=== PATIENT | male | born 1950 | race Caucasian/White ===

== ENCOUNTER 2021-07-13 09:34 | Outpatient (CLI) | payer OTHER, SELFPAY ==
[2021-07-13 20:22] LABS: Anion Gap 7 mmol/L (8-16); Blood Urea Nitrogen 14 mg/dL (9-20); Carbon Dioxide 23 mmol/L (22-30); Chloride 108 mmol/L (98-107); Estimated Glomerular Filt Rate 46; Glucose 161 mg/dL (65-110); Potassium 4.4 mmol/L (3.4-5.0); Sodium 138 mmol/L (137-145)
== END 2021-07-13 09:35 | disposition home or self-care (01) ==
LOC: ANHBWCLAB 09:36
PROVIDERS: PCP Family Medicine; Visit Provider Family Medicine
DX: N17.9 Acute kidney failure, unspecified (principal)
CPT/HCPCS: 36415; 80048

== ENCOUNTER 2021-07-20 09:14 | Outpatient (CLI) | payer OTHER, SELFPAY ==
--- NOTE | ~2021-07-20 | XR_ITS ---
EXAMINATION: XR abdomen obstructive series DATE: 07/20/2021 09:39 INDICATION: Diarrhea, abdominal cramping TECHNIQUE: Upright and supine views of the abdomen were obtained. COMPARISON: None. FINDINGS: There is no free intraperitoneal gas. No dilated loops of bowel are the bowel gas pattern i s nonspecific. An ovoid density in the mid abdomen likely reflects an ingested medication. 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 IMPRESSION: 1. Nonobstructive bowel gas pattern. Reviewed, dictated and finalized at location A. LSIOR MACHINE OPERATOR
--- NOTE | ~2021-07-20 | XR_ITS ---
XR chest 2V DATE: 07/20/2021 09:39 INDICATION: Chronic shortness of breath TECHNIQUE: PA and lateral views COMPARISON: None FINDINGS: Normal heart size. No hilar or mediastinal enlargement. No pulmonary infiltrate or consolid ation, pleural effusion or pulmonary vascular congestion or pneumothorax is detected. Diffuse osteopenia. There is mild thoracic dextroscoliosis. IMPRESSION: No active cardiopulmonary disease Reviewed, dictated and finalized at location B. OFFICER
[2021-07-20 19:07] LABS: Hematocrit 39.1 % (42.0-52.0); Hemoglobin 13.1 g/dL (14.0-18.0); Mean Corpuscular HGB Conc 33.5 g/dl (32-36); Mean Corpuscular Hemoglobin 30.6 pg (26-34); Mean Corpuscular Volume 91.4 fl (80-100); Mean Platelet Volume 10.5 fl (7.4-10.4); Platelet Count Result 203 k/mm3 (150-375); Red Blood Count 4.28 M/mm3 (4.6-6.20); Red Cell Distribution Width 14.1 % (11.5-14.5); White Blood Count 6.1 K/mm3 (4.5-10.0)
[2021-07-20 19:24] LABS: Anion Gap 6 mmol/L (8-16); Blood Urea Nitrogen 19 mg/dL (9-20); Calcium 9.2 mg/dL (8.4-10.2); Carbon Dioxide 28 mmol/L (22-30); Chloride 101 mmol/L (98-107); Estimated Glomerular Filt Rate 43; Glucose 191 mg/dL (65-110); Sodium 135 mmol/L (137-145)
[2021-07-20 19:29] LABS: NT Pro B Type Natriuretic Pept 932 pg/mL (5-100)
[2021-07-27 20:56] LABS: Parathyroid Hormone Related Pr 15 pg/mL (11-20)
== END 2021-07-20 09:15 | disposition home or self-care (01) ==
PROVIDERS: PCP Family Medicine; Visit Provider Family Medicine
DX: R19.7 Diarrhea, unspecified (principal); R10.9 Unspecified abdominal pain; R94.4 Abnormal results of kidney function studies; I50.9 Heart failure, unspecified
CPT/HCPCS: 36415; 71046; 74019; 80048; 83519; 83880; 85027

== ENCOUNTER 2021-08-01 12:21 | Outpatient (CLI) | payer OTHER, SELFPAY ==
--- NOTE | ~2021-08-01 | PE_ITS ---
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 TECHNIQUE: Blood glucose level was 110 mg/dL. 9.132 mCi of 18-fluorodeoxyglucose (18-FDG) was adminis tered i.v. Low dose computed tomography (CT) images were acquired from the base of the brain to the p roximal thighs for attenuation correction and anatomic localization. Automated exposure control was e mployed. Dose-length product (DLP) was 875 mGy-cm. Positron emission tomography (PET) images were acq uired in the same distribution. COMPARISON: None FINDINGS: Head/neck: There is increased activity in the nose, pharynx, oral cavity, major salivary glands, and glottis without abnormal CT correlate, likely physiologic. There is focal thickening of the left stra p muscle without increased activity. There are no pathologically enlarged lymph nodes. There is compl ete opacification of left maxillary sinus. There is mucosal thickening in right ethmoid sinus. Chest: There is mild scarring at the lung apices without increased activity. No pleural effusion. The heart size is normal. There are coronary artery calcifications. No pericardial effusion. There is a coarse calcification in right thyroid lobe, likely not clinically significant. Abdomen/pelvis/proximal thighs: The liver and spleen are normal. There is a gallstone in the gallblad devin, which is normal in size. The pancreas, adrenal glands, and kidneys are normal. There is divertic ulosis of the colon without evidence of diverticulitis. The prostate is mildly enlarged. There are no pathologically enlarged lymph nodes. There is no free intraperitoneal fluid. IMPRESSION: 1. Focal thickening of the left strap muscle without increased activity. This finding is nonspecific, but may be seen with ectopic thyroid or thyroglossal duct cyst. Correlation with neck CT with contra st is recommended. Reviewed, dictated and finalized at location A. URE TRAVEL AGENT IMPRESSION: 1. Focal thickening of the left strap muscle without increased activity. This f inding is nonspecific, but may be seen with ectopic thyroid or thyroglossal dunia t cyst. Correlation with neck CT with contrast is recommended.
[2021-08-01 12:45] LABS: Glucose Point of Care 110 mg/dl (65-105)
== END 2021-08-01 12:22 | disposition home or self-care (01) ==
LOC: ANHIMG 12:22
PROVIDERS: PCP Family Medicine; Visit Provider Family Medicine
DX: E04.1 Nontoxic single thyroid nodule (principal); R93.0 Abnormal findings on diagnostic imaging of skull and head, not elsewhere classified
CPT/HCPCS: 78815; A9552

== ENCOUNTER 2021-08-31 09:30 | Outpatient (CLI) | payer OTHER, SELFPAY | END 2021-08-31 09:31 | disposition home or self-care (01) | LOC: ANHBWCLAB 09:32 | PROVIDERS: PCP Family Medicine; Visit Provider Family Medicine | DX: R20.9 Unspecified disturbances of skin sensation (principal) | CPT/HCPCS: 36415; 84443 ==

== ENCOUNTER 2021-09-28 13:03 | Outpatient (CLI) | payer OTHER, SELFPAY ==
--- NOTE | 2021-09-28 13:27 | ECHO_ITS ---
Patient Info Name: Jose Segal Age: 70 years : 1950 Gender: Male Ht: 64 in Wt: 184 lbs BSA: 1.97 m2 HR: 71 bpm BP: 112 / 75 mmHg Technical Quality: Fair Exam Date: 09/28/2021 1:41 PM Exam Location: [facility] Patient Status: Outpatient Admit Date: 09/28/2021 Staff Ordering Physician: Mervin Boyle DO Housing Coordinator: Florinda Zendejas RDCS Attending Provider: Mervin Boyle DO Referring Physician: [place] PAIZ; Exam Type: CA echo doppler color flow Study Info Indications I25.5 - Ischemic cardiomyopathy Complete two-dimensional, color flow and Doppler transthoracic echocardiogram is performed. Summary 1. Complete two-dimensional, color flow and Doppler transthoracic echocardiogram is performed. 2. Left ventricular chamber dimension is severely enlarged. 3. Left ventricular systolic function is severely reduced, estimated at 20-25%. 4. There is mildly increased left ventricular wall thickness. 5. The left ventricular diastolic function is grade I diastolic dysfunction. 6. E/e' 11 is mildly elevated. 7. Global longitudinal strain is abnormal at -6.6%. 8. There is mild aortic valve sclerosis. 9. No pulmonary hypertension, estimated pulmonary arterial systolic pressure is 14 mmHg. Left Ventricle E/e' 11 is mildly elevated. Global longitudinal strain is abnormal at -6.6%. Left ventricular chamber dimension is severely enlarged. Left ventricular systolic function is severely reduced, estimated at 20-25%. There is mildly increased left ventricular wall thickness. The left ventricular diastolic function is grade I diastolic dysfunction. Right Ventricle Right ventricular chamber dimension is normal. Right ventricular systolic function is normal. Left Atria Left atrial chamber dimension is normal. Right Atria Right atrial chamber dimension is normal. Aortic Valve The aortic valve is trileaflet. There is mild aortic valve sclerosis. There is no aortic valve stenosis. There is no aortic valve regurgitation. Pulmonic Valve There is no pulmonic regurgitation. Mitral Valve There is no mitral valve stenosis. There is no mitral valve regurgitation. Tricuspid Valve There is no tricuspid valve regurgitation. No pulmonary hypertension, estimated pulmonary arterial systolic pressure is 14 mmHg. Pericardium/Pleural There is no pericardial effusion. Inferior Vena Cava Normal inferior vena cava with >50% collapse upon inspiration consistent with normal right atrial pressure, 5 mmHg. Aorta The aortic root size at the sinus of Valsalva is normal. Left Ventricular Outflow Tract Name Value Normal LVOT 2D LVOT Diameter 2.1 cm LVOT Doppler LVOT Peak Gradient 3 mmHg LVOT Mean Gradient 2 mmHg LVOT VTI 19 cm LVOT VTI/AV VTI Ratio 0.9 LVOT Stroke Volume 67 ml LVOT CO 3.8 l/min LVOT CI 1.9 l/min/m2 Pulmonic Valve
== END 2021-09-28 13:04 | disposition home or self-care (01) ==
LOC: ANHCARD 13:05
PROVIDERS: PCP Family Medicine; Visit Provider Internal Medicine Cardiovascular Disease
DX: I25.5 Ischemic cardiomyopathy (principal)
CPT/HCPCS: 93306

== ENCOUNTER 2021-11-20 14:04 | Outpatient (CLI) | payer OTHER, SELFPAY ==
[2021-11-20 14:15] VITALS: PULSE 79; O2SAT 96
[2021-11-20 14:17] VITALS: PULSE 85; O2SAT 96
[2021-11-20 14:21] VITALS: PULSE 90; O2SAT 96
--- NOTE | 2021-11-20 14:22 | HOMEO2EVAL ---
Evaluation was performed at [facility] Evaluation RC: Home Oxygen (O2) Evaluation Start: 11/20/21 14:20 Freq: Status: Active Protocol: RPE Activity Type Activity Date Activity User E-sign Co-sign Detail Recorded Client Recorded Date Recorded By Document 11/20/21 14:15 KRM [email or web address] 11/20/21 14:21 KRM Document 11/20/21 14:17 KRM [email or web address] 11/20/21 14:21 KRM Document 11/20/21 14:21 KRM [email or web address] 11/20/21 14:21 KRM 11/20/21 11/20/21 11/20/21 14:15 14:17 14:21 Home O2 Evaluation Test Phase Resting Exercise Exercise Oxygen Delivery Nasal Cannula Nasal Cannula Nasal Cannula Oxygen Flow Rate (L/min) 2 2 2 Pulse Oximetry (90-100 %) 96 96 96 Pulse Rate (60-100 beats/min) 79 85 90 Activity Tolerance Fair Fair Ambulation Distance (feet) 100 Ambulation Distance (meters) 30.47 Home Oxygen Evaluation Comments PER NO CHANGES TZELEPIS ORDER NEEDED WITH O2 STARTED PT. ON AT THIS TIME. 2LPM. Treatment Charges O2 Evaluation - Outpatient
--- NOTE | 2021-11-20 15:20 | WPDPFTINT ---
PFT Procedure Performed PFT Procedure Performed Spirometry with Pre/Post Bronchodilator Plethysmography (Lung Vol) Diffusing Cap (DLCO) Flow Vol Loop PFT Interpretation Lung volumes were measured with the body plethysmography method. The borderline total lung capacity and vital capacity are indicative of a mild respiratory restrictive defect. Spirometry showed diminished expiratory flow rates and a normal FEV1 to FVC ratio of 74%, consistent with restrictive respiratory defect. Following administration of a bronchodilator there was no significant increase in expiratory flow rates. Lung diffusion capacity is mildly reduced at 61% predicted. The flow volume loop shows probable plateau of the expiratory flows. The inspiratory limb of the flow volume loop is unremarkable. The ratio of FEV1 / peak expiratory flow rate (in ml/L/min) is greater than 10 which also is suggestive of intrathoracic obstruction. Clinical correlation advised. impression: mild restrictive respiratory disease. Mild reduction in lung diffusion capacity. Probable upper airway obstruction of intrathoracic type.
== END 2021-11-20 14:05 | disposition home or self-care (01) ==
LOC: ANHPFT 14:05
PROVIDERS: PCP Family Medicine; Visit Provider Internal Medicine Pulmonary Disease
DX: R06.1 Stridor (principal); J44.9 Chronic obstructive pulmonary disease, unspecified; J34.2 Deviated nasal septum
CPT/HCPCS: 94060; 94618; 94726; 94729

== ENCOUNTER 2021-11-30 07:36 | Outpatient (CLI) | payer OTHER, SELFPAY ==
[2021-11-30 19:18] LABS: Hemoglobin A1C 6.3 % (<5.7)
== END 2021-11-30 07:37 | disposition home or self-care (01) ==
PROVIDERS: PCP Family Medicine; Visit Provider Family Medicine
DX: E11.9 Type 2 diabetes mellitus without complications (principal)
CPT/HCPCS: 36415; 83036

== ENCOUNTER 2022-03-01 06:36 | Outpatient (CLI) | payer OTHER, SELFPAY ==
--- NOTE | ~2022-03-01 | CT_ITS ---
EXAMINATION: CT soft tissue neck wo con DATE: 03/01/2022 07:11 INDICATION: Stridor. TECHNIQUE: Computed tomography (CT) of the neck was performed without intravenous contrast. Automated exposure control and iterative reconstruction technique were employed. The dose-length product was 4 53.76 mGy-cm. COMPARISON: PET CT 08/01/2021 FINDINGS: There is mild scarring at the lung apices. There is complete opacification of left maxillar y sinus which is small, consistent with chronic sinusitis. The mastoid air cells are normal. There ar e no pathologically enlarged lymph nodes. There is a 1.5 x 1.0 x 1.8 cm mass involving the strap musc les centered to the left of midline. There is a 7 mm nodule in right thyroid lobe, likely not clinica lly significant. There are carious lesions of the few remaining teeth. There are no pathologically en larged lymph nodes. There is severe cervical spondylosis. IMPRESSION: 1. 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 Reviewed, dictated and finalized at location A. IMPRESSION: 1. 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
--- NOTE | 2022-03-01 06:49 | ECHO_ITS ---
Patient Info Name: Jose Segal Age: 71 years : 1950 Gender: Male Ht: 64 in Wt: 182 lbs BSA: 1.96 m2 HR: 67 bpm BP: 98 / 65 mmHg Technical Quality: Good Exam Date: 03/01/2022 8:42 AM Exam Location: [facility] Patient Status: Outpatient Admit Date: 03/01/2022 Staff Ordering Physician: Mervin Boyle DO Data Collection Specialist: Antolin Acevedo, JUSTIN, RT Attending Provider: Mina Perkins MD Referring Physician: [place] PAIZ; Exam Type: CA echo doppler color flow Study Info Indications I25.5 - Ischemic cardiomyopathy Complete two-dimensional, color flow and Doppler transthoracic echocardiogram is performed. Strain analysis performed. Summary 1. Complete two-dimensional, color flow and Doppler transthoracic echocardiogram is performed. 2. Left ventricular chamber dimension is moderately enlarged. 3. Left ventricular systolic function is severely reduced, estimated at 30-35%. 4. There is mildly increased left ventricular wall thickness. 5. The left ventricular diastolic function is grade I diastolic dysfunction. 6. E/e' 15 is elevated. 7. Global longitudinal strain is abnormal at -9.5%. 8. There is mild aortic valve sclerosis. 9. There is trace aortic valve regurgitation. 10. There is mild mitral valve regurgitation. Left Ventricle E/e' 15 is elevated. Global longitudinal strain is abnormal at -9.5%. Left ventricular chamber dimension is moderately enlarged. Left ventricular systolic function is severely reduced, estimated at 30-35%. There is mildly increased left ventricular wall thickness. The left ventricular diastolic function is grade I diastolic dysfunction. Right Ventricle Right ventricular systolic function is normal and with normal TAPSE 2.5 cm. Right ventricular chamber dimension is normal. Left Atria Left atrial chamber dimension is normal. Right Atria Right atrial chamber dimension is normal. Aortic Valve The aortic valve is trileaflet. There is mild aortic valve sclerosis. There is no aortic valve stenosis. There is trace aortic valve regurgitation. Pulmonic Valve There is no pulmonic regurgitation. Mitral Valve There is no mitral valve stenosis. There is mild mitral valve regurgitation. Tricuspid Valve There is no tricuspid valve regurgitation. Pericardium/Pleural There is no pericardial effusion. Inferior Vena Cava Normal inferior vena cava with >50% collapse upon inspiration consistent with normal right atrial pressure, 5 mmHg. Aorta The aortic root size at the sinus of Valsalva is normal. Left Ventricular Outflow Tract Name Value Normal LVOT 2D LVOT Diameter 2.1 cm LVOT Doppler LVOT Peak Gradient 3 mmHg LVOT Mean Gradient 2 mmHg LVOT VTI 17 cm LVOT VTI/AV VTI Ratio 0.7 LVOT Stroke Volume 59 ml LVOT CO 4.1 l/min LVOT CI 2.1 l/min/m2 Mitral Valve
== END 2022-03-01 06:37 | disposition home or self-care (01) ==
PROVIDERS: PCP Family Medicine; Visit Provider Internal Medicine Pulmonary Disease
DX: M79.89 Other specified soft tissue disorders (principal); R06.1 Stridor; I25.5 Ischemic cardiomyopathy
CPT/HCPCS: 70490; 93306

== ENCOUNTER 2022-04-24 07:35 | Outpatient (CLI) | payer OTHER, SELFPAY ==
[2022-04-24 20:40] LABS: Anion Gap 13 mmol/L (8-16); Blood Urea Nitrogen 28 mg/dL (9-20); Calcium 9.9 mg/dL (8.4-10.2); Carbon Dioxide 25 mmol/L (22-30); Chloride 102 mmol/L (98-107); Cholesterol 223 mg/dL (0-200); Estimated Glomerular Filt Rate 37; Glucose 150 mg/dL (65-110); HDL Direct 30 mg/dL; Potassium 4.3 mmol/L (3.4-5.0); Sodium 140 mmol/L (137-145); Triglycerides 204 mg/dL (<150)
[2022-04-24 20:52] LABS: LDL Cholesterol Direct 116 mg/dL
[2022-04-24 21:47] LABS: Creatinine Urine 57.4 mg/dL
[2022-04-24 22:07] LABS: Hemoglobin A1C 6.8 % (<5.7)
[2022-04-24 23:18] LABS: Microalbumin Urine Random < 6.0 mg/L (0-16.7)
[2022-04-26 10:26] LABS: MALB Creatinine Ratio < 10.5 mg/g (0-30)
== END 2022-04-24 07:36 | disposition home or self-care (01) ==
PROVIDERS: PCP Family Medicine; Visit Provider Family Medicine
DX: E11.9 Type 2 diabetes mellitus without complications (principal)
CPT/HCPCS: 36415; 80048; 80061; 82043; 83036

== ENCOUNTER 2022-06-05 10:12 | Outpatient (CLI) | payer OTHER, SELFPAY ==
--- NOTE | 2022-06-06 10:58 | WPDPFTINT ---
PFT Procedure Performed PFT Procedure Performed Spirometry with Pre/Post Bronchodilator Flow Vol Loop PFT Interpretation Spirometry showed diminished expiratory flow rates and a normal FEV1 to FVC ratio 74%. Following administration of a bronchodilator there was no significant increase in expiratory flow rates. Flow volume loop is unremarkable. Impression: Spirometry with restrictive pattern. Consider measurement of lung volumes to exclude restrictive respiratory disease. Clinical correlation recommended.
--- NOTE | 2022-06-06 11:01 | WPDSIXMINUTE ---
Six Minute Walk Procedure Procedure Performed Pulmonary Stress Test (6 min walk) Six Minute Walk Six Minute Walk: This 6 minute walk test was carried out with the patient breathing ambient air. The baseline pre walk oxyhemoglobin saturation was 93%. The patient walked 213 m with no stops during testing. During the walk the oxyhemoglobin saturation remained in the range of 91% to 94%. Impression: No evidence of oxyhemoglobin desaturation on this testing.
== END 2022-06-05 10:13 | disposition home or self-care (01) ==
LOC: ANHPFT 10:13
PROVIDERS: PCP Family Medicine; Visit Provider Internal Medicine Pulmonary Disease
DX: J96.90 Respiratory failure, unspecified, unspecified whether with hypoxia or hypercapnia (principal)
CPT/HCPCS: 94060; 94618

== ENCOUNTER 2022-07-25 08:10 | Outpatient (CLI) | payer OTHER, SELFPAY ==
[2022-07-25 19:06] LABS: Basophils Absolute Auto 0.1 K/mm3 (0.0-0.1); Basophils Percent Auto 0.7 % (0.2-1.2); Eosinophils Absolute Auto 0.2 K/mm3 (0-0.3); Eosinophils Percent Auto 2.1 % (0-4.4); Hematocrit 46.8 % (42.0-52.0); Hemoglobin 15.3 g/dL (14.0-18.0); Immature Granulocyte Absolute 0.03 K/mm3 (0.00-0.031); Immature Granulocyte Percent A 0.4 % (0-0.5); Immature Platelet Fraction Pct 1.8 % (0.9-11.2); Lymphocytes Absolute Auto 1.49 K/mm3 (0.9-3.2); Lymphocytes Percent Auto 17.7 % (18.3-44.2); Mean Corpuscular HGB Conc 32.7 g/dl (32-36); Mean Corpuscular Hemoglobin 31.7 pg (26-34); Mean Corpuscular Volume 97.1 fl (80-100); Mean Platelet Volume 9.4 fl (7.4-10.4); Monocytes Absolute Auto 0.7 K/mm3 (0.1-0.6); Monocytes Percent Auto 8.8 % (2.6-8.5); Neutrophils Absolute Auto 5.9 K/mm3 (1.3-6.7); Neutrophils Percent Auto 70.3 % (45.5-73.1); Platelet Count Result 274 k/mm3 (150-375); Red Blood Count 4.82 M/mm3 (4.6-6.20); Red Cell Distribution Width 12.9 % (11.5-14.5); White Blood Count 8.4 K/mm3 (4.5-10.0)
[2022-07-25 19:29] LABS: Creatinine Urine 64.1 mg/dL
[2022-07-25 19:37] LABS: Prostate Specific Antigen 3.4 ng/mL (< OR = 4.0)
[2022-07-25 20:08] LABS: MALB Creatinine Ratio < 9.4 mg/g (0-30); Microalbumin Urine Random < 6.0 mg/L (0-16.7)
== END 2022-07-25 08:11 | disposition home or self-care (01) ==
PROVIDERS: PCP Family Medicine; Visit Provider Family Medicine
DX: N18.9 Chronic kidney disease, unspecified (principal); J44.9 Chronic obstructive pulmonary disease, unspecified; E78.5 Hyperlipidemia, unspecified; R60.0 Localized edema; J96.90 Respiratory failure, unspecified, unspecified whether with hypoxia or hypercapnia; I25.5 Ischemic cardiomyopathy; I50.9 Heart failure, unspecified; I25.10 Atherosclerotic heart disease of native coronary artery without angina pectoris; I82.409 Acute embolism and thrombosis of unspecified deep veins of unspecified lower extremity; I95.9 Hypotension, unspecified; I48.91 Unspecified atrial fibrillation; E11.9 Type 2 diabetes mellitus without complications; Z12.5 Encounter for screening for malignant neoplasm of prostate
CPT/HCPCS: 36415; 82043; 84153; 85025; 85055; G0103

== ENCOUNTER 2022-10-24 09:02 | Outpatient (CLI) | payer OTHER, SELFPAY ==
[2022-10-24 19:54] LABS: Hemoglobin A1C 6.9 % (<5.7)
== END 2022-10-24 09:03 | disposition home or self-care (01) ==
PROVIDERS: PCP Family Medicine; Visit Provider Nurse Practitioner
DX: E11.9 Type 2 diabetes mellitus without complications (principal)
CPT/HCPCS: 36415; 83036

== ENCOUNTER 2022-11-22 07:59 | Outpatient (CLI) | payer OTHER, SELFPAY ==
--- NOTE | 2022-11-22 08:37 | ECHO_ITS ---
Patient Info Name: Jose Segal Age: 72 years : 1950 Gender: Male Ht: 64 in Wt: 182 lbs BSA: 1.96 m2 HR: 71 bpm BP: 120 / 81 mmHg Technical Quality: Good Exam Date: 11/22/2022 8:55 AM Exam Location: [facility] Patient Status: Outpatient Admit Date: 11/22/2022 Staff Ordering Physician: Mervin Boyle DO Fryer Line Helper: Florinda Zendejas RDCS Attending Provider: Mervin Boyle DO Referring Physician: [place] PAIZ; Exam Type: CA echo doppler color flow Study Info Indications I25.5 - Ischemic cardiomyopathy Complete two-dimensional, color flow and Doppler transthoracic echocardiogram is performed. Summary 1. Complete two-dimensional, color flow and Doppler transthoracic echocardiogram is performed. 2. Left ventricular systolic function is severely globally reduced, estimated at 30-35%. 3. Anterior and anteroseptal javed are severely hypokinetic to akinetic. 4. Left ventricular chamber dimension is moderately enlarged. 5. There is mild concentric increased left ventricular wall thickness. 6. The left ventricular diastolic function is grade I diastolic dysfunction. 7. E/e' 11 is mildly elevated. 8. Global longitudinal strain is abnormal at -9.6%. 9. There is mild aortic valve sclerosis. 10. There is trace aortic valve regurgitation. 11. There is mild mitral valve regurgitation. 12. No pulmonary hypertension, estimated pulmonary arterial systolic pressure is 24 mmHg. 13. There is trace pulmonic regurgitation. Left Ventricle E/e' 11 is mildly elevated. Global longitudinal strain is abnormal at -9.6%. Left ventricular systolic function is severely globally reduced, estimated at 30-35%. Anterior and anteroseptal javed are severely hypokinetic to akinetic. Left ventricular chamber dimension is moderately enlarged. There is mild concentric increased left ventricular wall thickness. The left ventricular diastolic function is grade I diastolic dysfunction. Right Ventricle Right ventricular chamber dimension is normal. Right ventricular systolic function is normal. Left Atria Left atrial chamber dimension is normal. Right Atria Right atrial chamber dimension is normal. Aortic Valve The aortic valve is trileaflet. There is mild aortic valve sclerosis. There is no aortic valve stenosis. There is trace aortic valve regurgitation. Pulmonic Valve There is trace pulmonic regurgitation. Mitral Valve There is no mitral valve stenosis. There is mild mitral valve regurgitation. Tricuspid Valve There is no tricuspid valve regurgitation. No pulmonary hypertension, estimated pulmonary arterial systolic pressure is 24 mmHg. Pericardium/Pleural There is no pericardial effusion. Inferior Vena Cava Normal inferior vena cava with >50% collapse upon inspiration consistent with normal right atrial pressure, 5 mmHg. Aorta The aortic root size at the sinus of Valsalva is normal. Left Ventricular Outflow Tract Name Value Normal LVOT 2D LVOT Diameter 2.0 cm LVOT Doppler LVOT Peak Gradient 6 mmHg LVOT Mean Gradient 4 mmHg LVOT VTI 25 cm LVOT VTI/AV VTI Ratio 1.1 LVOT
== END 2022-11-22 08:00 | disposition home or self-care (01) ==
PROVIDERS: PCP Family Medicine; Visit Provider Internal Medicine Cardiovascular Disease
DX: I25.5 Ischemic cardiomyopathy (principal); I34.0 Nonrheumatic mitral (valve) insufficiency
CPT/HCPCS: 93306

== ENCOUNTER 2023-05-30 07:45 | Outpatient (CLI) | payer OTHER, SELFPAY ==
[2023-05-30 08:30] VITALS: PULSE 83; O2SAT 93
[2023-05-30 08:35] VITALS: PULSE 96; O2SAT 94
[2023-05-30 08:45] VITALS: PULSE 87; O2SAT 94
--- NOTE | 2023-05-30 09:32 | HOMEO2EVAL ---
Evaluation was performed at [facility] Home Oxygen Evaluation RC: Home Oxygen (O2) Evaluation Start: 05/30/23 09:30 Freq: Status: Active Protocol: RPE Activity Type Activity Date Activity User E-sign Co-sign Detail Recorded Client Recorded Date Recorded By Document 05/30/23 08:30 PEPITO [email or web address] 05/30/23 09:32 PEPITO Document 05/30/23 08:35 PEPITO [email or web address] 05/30/23 09:32 PEPITO Document 05/30/23 08:45 PEPITO [email or web address] 05/30/23 09:32 PEPITO 05/30/23 05/30/23 05/30/23 08:30 08:35 08:45 Home O2 Evaluation [Oxygen] -Test Phase Resting Exercise Resting -Oxygen Delivery Room Air Room Air Room Air [Pulse Oximetry] -Pulse Oximetry (90-100 %) 93 94 94 [Pulse Rate] -Pulse Rate (60-100 beats/min) 83 96 87 [Exercise] -Ambulation Distance (feet) 700 -Ambulation Distance (meters) 213.34 [Charges] -Evaluation Charges O2 Evaluation by Pulmonary
--- NOTE | 2023-05-30 09:33 | PCRCNOTE ---
Home O2 Eval faxed to office staff
--- NOTE | 2023-05-30 12:58 | P.PCNPFT_ITS ---
PFT Procedure Performed PFT Procedure Performed Spirometry with Pre/Post Bronchodilator Plethysmography (Lung Vol) Diffusing Cap (DLCO) Flow Vol Loop PFT Interpretation This is a pulmonary function test with pre and post-bronchodilator spirometry, plethysmography and diffusing capacity. The test was performed and results interpreted in accordance with the 2019 and 2005 ATS/ERS Task Force guidelines respectively using the Global Lung Function Initiative-2012 reference equations. Patient demonstrated good effort and cooperation. Reproducibility criteria were met. The quality of the pre bronchodilator spirometry maneuver was Grade B and post bronchodilator spirometry maneuver was Grade B. Findings: Spirometry: There is decreased maximal expiratory airflow at all lung volumes with concave expiratory flow tracing. The contour the inspiratory flow tracing is normal. The pre bronchodilator FVC is 2.59 L, 77% predicted. The pre bronchodilator FEV1 is 1.70 L, 66% predicted. The pre bronchodilator FEV1: FVC ratio 66%. The post bronchodilator FVC is 2.54 L, representing a 2% decrease. The post bronchodilator FEV1 is 1.47 L, representing a 13% decrease. The post bronchodilator FEV1: FVC ratio is 58%. Plethysmography: The total lung capacity is 5.98 L, 102% predicted. The functional residual capacity is 3.93 L, 128% predicted. The residual volume is 3.33 L, 152% predicted. Diffusing capacity: The diffusing capacity unadjusted for hemoglobin and carboxyhemoglobin is 13.5, 59% predicted. The diffusing capacity adjusted for alveolar volume is 4.41, 105% predicted. In comparison to most recent spirometry on 06/05/2022 the post bronchodilator FVC is unchanged from 2.46 L to 2.54 L. The post bronchodilator FEV1 is unchanged from 1.35 L to 1.47 L. In comparison to most recent plethysmography and DLCO on 11/20/2021 the total lung volume has increased from 4.64 L to 5.98 L. The functional residual capacity is increased from 2.75 L to 3.93 L. The residual volume has increased from 1.95 L to 3.33 L. The diffusing capacity unadjusted for hemoglobin and carboxyhemoglobin is unchanged from 14.3 to 13.5. The diffusing capacity adjusted for alveolar volume is unchanged from 4.93 to 4.41 Impression: There is a moderate obstructive abnormality without significant im provement after inhaling a single dose of albuterol. The increase in residual volume is consistent with air trapping from an obstructive abnormality. The diffusing capacity unadjusted for hemoglobin and carboxyhemoglobin is moderately decreased and normalizes when adjusted for alveolar volume. In comparison to the most recent studies on 06/05/2022 and 11/20/2021 there has been a greater than anticipated time dependent increase in the total lung capacity, functional residual capacity and residual volume with no significant change in the FVC, FEV1 or diffusing capacity. Clinical correlation is recommended.
== END 2023-05-30 07:46 | disposition home or self-care (01) ==
LOC: ANHPFT 07:46
PROVIDERS: PCP Family Medicine; Visit Provider Nurse Practitioner Family
DX: R06.09 Other forms of dyspnea (principal); R06.1 Stridor
CPT/HCPCS: 94060; 94618; 94726; 94729

== ENCOUNTER 2023-09-10 12:19 | Outpatient (CLI) | payer OTHER, SELFPAY ==
--- NOTE | 2023-09-10 12:22 | ECHO_ITS ---
Patient Info Name: Jose Segal Age: 72 years : 1950 Gender: Male Ht: 64 in Wt: 184 lbs BSA: 1.97 m2 HR: 90 bpm BP: 127 / 86 mmHg Heart Rhythm: Sinus Rhythm Technical Quality: Good Exam Date: 09/10/2023 12:35 PM Exam Location: [facility] Patient Status: Outpatient Admit Date: 09/10/2023 Staff Ordering Physician: Mervin Boyle DO Zinc Chloride Operator: Estephania Salas RDCS Attending Provider: Mervin Boyle DO Referring Physician: [place] PAIZ; Exam Type: CA echo doppler color flow Study Info Indications I25.5 - Ischemic cardiomyopathy Complete two-dimensional, color flow and Doppler transthoracic echocardiogram is performed. Strain analysis performed. Summary 1. Complete two-dimensional, color flow and Doppler transthoracic echocardiogram is performed. 2. Left ventricular systolic function is moderately globally reduced, estimated at 35-40%. 3. Left ventricular chamber dimension is moderately enlarged. 4. The left ventricular diastolic function is grade II diastolic dysfunction. 5. E/e' 9 is minimally elevated. 6. Global longitudinal strain is abnormal at -9.6%. 7. Linear artifact in right ventricle suggestive of catheter(s), pacemaker lead(s), or ICD lead(s). 8. Left atrial chamber dimension is mildly enlarged. 9. Linear artifact in the right atrium suggestive of catheter(s), pacemaker lead(s), or ICD lead(s). 10. No pulmonary hypertension, estimated pulmonary arterial systolic pressure is 24 mmHg. Left Ventricle E/e' 9 is minimally elevated. Global longitudinal strain is abnormal at -9.6%. Left ventricular systolic function is moderately globally reduced, estimated at 35-40%. Left ventricular chamber dimension is moderately enlarged. The left ventricular diastolic function is grade II diastolic dysfunction. Right Ventricle Linear artifact in right ventricle suggestive of catheter(s), pacemaker lead(s), or ICD lead(s). Right ventricular chamber dimension is normal. Right ventricular systolic function is normal. Left Atria Left atrial chamber dimension is mildly enlarged. Right Atria Linear artifact in the right atrium suggestive of catheter(s), pacemaker lead(s), or ICD lead(s). Right atrial chamber dimension is normal. Aortic Valve The aortic valve is trileaflet. There is no aortic valve stenosis. There is no aortic valve regurgitation. Pulmonic Valve There is no pulmonic regurgitation. Mitral Valve There is no mitral valve stenosis. There is no mitral valve regurgitation. Tricuspid Valve There is no tricuspid valve regurgitation. No pulmonary hypertension, estimated pulmonary arterial systolic pressure is 24 mmHg. Pericardium/Pleural There is no pericardial effusion. Inferior Vena Cava Normal inferior vena cava with >50% collapse upon inspiration consistent with normal right atrial pressure, 5 mmHg. Aorta The aortic root size at the sinus of Valsalva is normal. Left Ventricular Outflow Tract Name Value Normal LVOT 2D LVOT Diameter 2.0 cm LVOT Doppler LVOT Peak Gradient 1 mmHg LVOT Mean Gradient 1 mmHg LVOT VTI 10 cm LVOT VTI/AV VTI Ratio 0.5
== END 2023-09-10 12:20 | disposition home or self-care (01) ==
PROVIDERS: PCP Family Medicine; Visit Provider Internal Medicine Cardiovascular Disease
DX: I25.5 Ischemic cardiomyopathy (principal)
CPT/HCPCS: 93306

== ENCOUNTER 2025-01-27 07:13 | Outpatient (CLI) | payer OTHER, SELFPAY ==
--- OUTSIDE RECORDS SUMMARY | 2020-02-05 06:35 | XMS_ITS | Continuity of Care Document ---
Author Organization [facility] Address [address] [place] [address] Phone Care Team Providers Care Cloud Security Architect Name Role Phone Leroy Galvez MD Unavailable Unavailable Allergies, Adverse Reactions, Alerts Substance Reaction Status Criticality No Known Allergies Active No Inform ation Medications Medication Instructions Dosage Effective Dates (start - stop) Status Comments pravastatin 10 mg tablet take 1 tablet by oral route every day 10 MG - Active losartan (unknown strength) Not Available - Active aspirin (unknown strength) Not Available - Active Procedures Procedure Date AFTER CATARACT LASER SURGERY OFFICE/OUTPATIENT VISIT, EST AFTER CATARACT LASER SURGERY EYE EXAM & TREATMENT CATARACT SURG W/IOL, 1 STAGE CATARACT SURG W/IOL, 1 STAGE EYE EXAM, NEW PATIENT OPHTHALMIC BIOMETRY OPHTHALMIC BIOMETRY MICROFLUID WHITNEY TEARS MICROFLUID WHITNEY TEARS Advance Directives Directive Yes / No Effective Date File Name No Information Encounters Encounter Description Practice Location Reason(s) For Visit Diagnoses Date Provider Providers Copied on Encounter [facility], [address], [place], [place], [id number], [place] [phone] [facility] No Information 0 Lenny Harper. [address] , [address], [place], [place], [id number] , [place]. tel: [phone] Referring Provider: Leroy Michael, [address], [place], [address] . tel:[phone] OFFICE/OUTPA TIENT VISIT, EST [facility], [address] [place] [address], [id number], [place] tel:[phone] [facility] ALBERTO VEGA blurry vision (chief complaint) Presence of intraocular lensDermatochala sis of left upper eyelidTear film insufficiency of bilateral lacrimal glandsSquamous blepharitis left upper eyelidOther vitreous opacities, bilateralOther secondary cataract, right eye 0 Lenny Harper. [address], [address], [place], [place], [id number] , [place]. tel:[phone] Referring Provider: Connor Miller MD, [address] [place] [address] B, [address], [place], [address]. tel:[phone] [facility], [address] [place] [address], [id number], [place] tel:[phone] [facility] No Information 9 Lenny Harper. [address], [address], [place], [place], [id number] , [place]. [phone] Referring Provider: Leroy Michael, [address], [place], [address] . tel:[phone] [facility], [address] [place] [address], [id number], [place] tel:[phone] [facility] CONSULT ALBERTO VEGA blurry vision (chief complaint) Tear film insufficiency of bilateral lacrimal glandsSquamous blepharitis left upper eyelidPresence of intraocular lensOther secondary cataract, bilateralDermato chalasis of left upper eyelid 9 Lenny Harper. [address], [address], [place], [place], [id number] , [place]. tel:[phone] Referring Provider: Leroy Michael, [address], [place], [address] . tel:[phone] [facility], [address] [facility] [address], [place], [id number], tel:[phone] [address] [place] [address] No Information Lenny Harper. [address], [address], [place], [place], [address] , [place]. tel:[phone] Referring Provider: Leroy Michael, [address], [place], [address] . tel:[phone] [facility], [address] [place] [address] [address], [place], [place], [id number], tel:[phone] [address] [place] [address] No Information Lenny Harper. [address], [address], [place], [place], [id number] , [place]. [phone] Referring Provider: Leroy Michael, [address], [place], [address] . tel:[phone] [facility], [address] [facility] [address], [place], [place], [id number], [place] tel:[phone] [facility] OPH CONSULT ALBERTO VEGA blurry vision (chief complaint) Age-related nuclear cataract, bilateralInsuffi ciency of tear film of both eyesSquamous blepharitis of right upper eyelidSquamous blepharitis of right lower eyelidSquamous blepharitis of left upper eyelidSquamous blepharitis of left lower eyelidDermatocha lasis of right upper eyelidDermatocha lasis of right lower eyelidDermatocha lasis of left upper eyelidDermatocha lasis of left lower eyelidDry ARMDAmblyopia of right eye 7 Lenny Harper. [address], [address], [place], [place], [id number] , [place]. [phone] Referring Provider: Leroy Michael, [address], [place], [address] . tel:[phone] Family History Family Member Type Diagnosis Age At Onset No Information Payers Payer name Insurance type Covered democrat ID Authoriza tion(s) Medicare Complete Advantage [facility] [id number] Social History Type Description Quantity Date Captured Comments Sex Male Smoking Status No Information Chief Complaint And Reason For Visit No Information Reason For Referral Reason For Referral No Information Plan Of Treatment Date Type Action Status Referral Ordered: Aubrey Montez OD (related to Other secondary cataract, right eye) ordered Referral Referred To: Aubrey Montez OD [address] [place], [place], [id number] Ordered: Referrals: Aubrey Montez OD. Surgery ordered History Of Present Illness Encounter Date Complaint History Of Prese nt Illness blurry vision The 69 year old male presents for evaluation of blurry vision in the right eye. It started about 1 month(s) ago. The symptom is constant. The condition is significant. Referred by TADEO Fregoso for a YAG eval of OD. Pt reports vision has slowly worsened. s/p PC IOL OUs/p YAG OS blurry vision The 68 year old male presents for evaluation of blurry vision in the left > right. It started about 3 month(s) ago. It occurs all the time. The onset was progressive. It affects both near and far vision. The symptom is constant. The condition is moderate. Patient states that VA was great after cataract sx. Now its really hard to focus. Increased glare and halos. Difficulty reading small print.ref TADEO Montez blurry vision The 66 year old male presents for evaluation of blurry vision in the right eye and left eye. It started year(s) ago. It occurs all the time. The onset was progressive. It affects far vision. The symptom is constant. The condition is significant. Patient reports troubles with night driving. Patient ref for cataract consult OU. Ref TADEO Montez. Optical biometry ordered today Functional Status Date Functional Assessmen t No Information Instructions Date Instruction Additional Infor mation Impression/Plan Related to Squam ous blepharitis left upper eyelid Impression/Plan Related to [place] tochalasis of left upper eyelid Impression/Plan Related to Prese nce of intraocular lens Impression/Plan Related to Other vitreous opacities, bilateral Impression/Plan Related to Other secondary cataract, right eye Impression/Plan Related to Tear film insufficiency of bilateral lacrimal glands Impression/Plan Related to Squam ous blepharitis left upper eyelid Impression/Plan Related to Prese nce of intraocular lens Impression/Plan Related to Other secondary cataract, bilateral Impression/Plan Related to [place] tochalasis of left upper eyelid Impression/Plan - Di scussed diagnosis in detail with patient. Discussed treatment options with patient. Lid scrubs and hygiene were explained. Patient instructed to apply warm compresses. Will continue to observe condition and or symptoms. Related to Dermatochalasis of left lower eyelid Impression/Plan - Di scussed diagnosis in detail with patient. Discussed treatment options with patient. Lid scrubs and hygiene were explained. Patient instructed to apply warm compresses. Will continue to observe condition and or symptoms. Related to Dermatochalasis of left upper eyelid Impression/Plan - Di scussed diagnosis in detail with patient. Discussed treatment options with patient. Lid scrubs and hygiene were explained. Patient instructed to apply warm compresses. Will continue to observe condition and or symptoms. Related to Dermatochalasis of right lower eyelid Impression/Plan - Di scussed diagnosis in detail with patient. Discussed treatment options with patient. Lid scrubs and hygiene were explained. Patient instructed to apply warm compresses. Will continue to observe condition and or symptoms. Related to Dermatochalasis of right upper eyelid Impression/Plan - Di scussed diagnosis in detail with patient. Advised patient of condition. Patient instructed to use artificial tears as needed. Will continue to observe condition and or symptoms. Educational materials provided:Blepharatis Related to Squamous blepharitis of left lower eyelid Impression/Plan - Di scussed diagnosis in detail with patient. Advised patient of condition. Patient instructed to use artificial tears as needed. Will continue to observe condition and or symptoms. Educational materials provided:Blepharatis Related to Squamous blepharitis of left upper eyelid Impression/Plan - Di scussed diagnosis in detail with patient. Advised patient of condition. Patient instructed to use artificial tears as needed. Will continue to observe condition and or symptoms. Educational materials provided:Blepharatis Related to Squamous blepharitis of right lower eyelid Impression/Plan - Di scussed diagnosis in detail with patient. Advised patient of condition. Patient instructed to use artificial tears as needed. Will continue to observe condition and or symptoms. Educational materials provided:Blepharatis. Related to Squamous blepharitis of right upper eyelid Impression/Plan - Th ere is no evidence of permanent changes to the cornea. Explained condition does not have a cure and will need artificial tears for maintenance. Related to Insufficiency of tear film of both eyes Impression/Plan - No treatment is required at this time. Pt states that he had Sx as a child. Will continue to observe. Related to Amblyopia of right eye Impression/Plan - Di scussed all risks, benefits, procedures and recovery. Patient understands changing glasses will not improve vision. Patient desires to have surgery, recommend phacoemulsification with intraocular lens. TADEO Benson RE OD>OS Standard Lens target distance. Pt aware they will need OTC readers after Sx. Related to Age-related nuclear cataract, bilateral Impression/Plan - Di scussed diagnosis in detail with patient. Advised patient of condition. Use of Amsler grid was explained. Vitamins recommended. Will continue to observe condition and or symptoms. Patient instructed to call if condition gets worse. 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
--- OUTSIDE RECORDS SUMMARY | 2025-01-27 07:17 | XMS_ITS ---
Author Name Juice Marrero DO Address [address] [place] [address] Phone [phone] Organization [facility] Care Team Providers Care Candy Rolling Machine Operator Name Role Phone Juice Marrero Unavailable [phone] [facility] Tier 1 RN (JASBIR), Danna gunter Unavailable ABNER CASTREJON Unavailable [phone] GOMEZ SAMUELS Unavailable [phone] MAMTA CASTRO Unavailable [phone] Tj Corbett Unavailable [phone] Reason for Referral Not Available Allergies, adverse reactions, alerts No known allergies History of medication use Medication Class Instructions Start Date End Date Pravastatin Sodium 40 mg Tab TAKE 1 TABL ET BY MOUTH ONCE DAILY 2024-08-17 No Data Available Spironolactone 25 mg Tab TAKE 1 TABLET B Y MOUTH ONCE DAILY 2024-08-28 No Data Available Furosemide 20 mg Tab TAKE 1 TABLET BY MO UTH IN THE MORNING 2024-08-31 No Data Available Clopidogrel Bisulfate 75 mg Tab TAKE 1 TABLET BY MOUTH ONCE DAILY 2024-02-27 No Data Available Pantoprazole Sodium 40 mg Ta b delayed rel TAKE 1 TABLET BY MOUTH IN THE MORNING 2024-08-13 No Data Available Jardiance 25 mg Tab TAKE 1 TABLET BY TAN TH IN THE MORNING 2024-01-27 No Data Available Carvedilol 3.125 mg Tab TAKE 1 TABLET BY MOUTH EVERY 12 HOURS WITH A MEAL/FOOD 2024-08-10 No Data Available Montelukast Sodium 10 mg Tab TAKE 1 TABL ET BY MOUTH ONCE DAILY 2024-07-30 No Data Available Meclizine 12.5 mg Tab 1 tablet orally ev angela 8 hours as needed 2024-12-22 No Data Available Tylenol Extra Strength 500 m g Tab No Data Available 2024-12-22 No Data Available Flonase Allergy Relief 50 MCG/ACT Suspension Nasal No Data Available 2024-12-22 No Data Availab le Fish Oil 500 mg Cap No Data Available 2024-12-22 No Data Available Problem List Problem Status Onset Date Resolved Date Synopsis CAD (coronary artery disease) Active 2024-12-22 N/A stage 3b Type 2 diabetes mellitus with chronic kidney disease Active 2024-12-22 N/A N/A HLD (hyperlipidemia) Active 2024-12-22 N/A N/A Systolic heart failure Active 2024-12-22 N/A N/ A GERD (gastroesophageal reflux disease) Active 2024-12-22 N/A N/A Bilateral vocal cord paralysis Active 2024-12-22 N/A s/p arytenoidect robert 08/2024 Allergic rhinitis Active 2024-12-22 N/A N/A Dizziness Active 2024-12-22 N/A N/A CKD stage 3b, GFR 30-44 ml/min Active 2025-01-04 N/A N/A Hypertensive heart and chronic kidney disease with heart failure and stage 1 through stage 4 chronic kidney disease, or unspecified chronic kidney disease Active 2025-01-04 N/A N/A Encounters Encounters Type Facility Date of Service Diagnosis/Co mplaint Home visit for evaluation and management of new patient requiring medically appropriate examination and moderate level of medical decision making. If using time, at least 60 minutes total time on en[facility] [place] 12/22/2024 Athscl heart disease of [place] coronary artery w/o ang pctrsType 2 diabetes mellitus with diabetic chronic kidney diseaseHyperlipidemia, unspecifiedHeart failure, unspecifiedGastro-esophageal reflux disease without esophagitisParalysis of vocal cords and larynx, bilateralAllergic rhinitis, unspecifiedDizziness and giddinessBody mass index (bmi) 28.0-28.9, adultChronic kidney disease, stage 3b Home visit for evaluation and management of new patient requiring medically appropriate examination and moderate level of medical decision making. If using time, at least 60 minutes total time on enco [facility] [place] 12/22/2024 Heart failure, unspe cified Home visit for evaluation and management of new patient requiring medically appropriate examination and moderate level of medical decision making. If using time, at least 60 minutes total time on enco [facility] [place] 12/22/2024 Heart failure, unspe cified Home visit for evaluation and management of new patient requiring medically appropriate examination and moderate level of medical decision making. If using time, at least 60 minutes total time on en[facility] [place] 12/22/2024 Type 2 diabetes dion itus with diabetic chronic kidney disease Home visit for evaluation and management of new patient requiring medically appropriate examination and moderate level of medical decision making. If using time, at least 60 minutes total time on enco [facility] [place] 12/22/2024 Type 2 diabetes dion itus with diabetic chronic kidney disease Home visit for evaluation and management of established patient requiring medically appropriate examination and low level of medical decision making. If using time, at least 30 minutes total time on e [facility] [place] 01/04/2025 Heart failure, unspe cifiedHyp hrt & chr kdny dis w hrt fail and stg 1-4/unsp chr kdnyChronic kidney disease, stage 3bType 2 diabetes mellitus with diabetic chronic kidney diseaseUnspecified systolic (congestive) heart failure Home visit for evaluation and management of established patient requiring medically appropriate examination and low level of medical decision making. If using time, at least 30 minutes total time on e [facility] [place] 01/04/2025 Type 2 diabetes dion itus with diabetic chronic kidney disease Home visit for evaluation and management of established patient requiring medically appropriate examination and low level of medical decision making. If using time, at least 30 minutes total time on e [facility] [place] 01/04/2025 Type 2 diabetes dion itus with diabetic chronic kidney disease Vital Signs Date of Collection Vitals 2024-12-22 10:30:00 Height - 162.56 cmWe ight - 74.84 kgBody Mass Index (BMI) - 28.32 kg/m2BP Diastolic - 75.0 mm[Hg]BP Systolic - 103.0 mm[Hg]Heart Rate - 89.0 /minRespiratory Rate - 18.0 /minO2 % BldC Oximetry - 95.0 % 2025-01-04 12:30:00 BP Diastolic - 68.0 mm[Hg]BP Systolic - 117.0 mm[Hg]Heart Rate - 84.0 /minRespiratory Rate - 16.0 /minO2 % BldC Oximetry - 94.0 % Social History Sex Male History of Procedures Procedures Service Procedure code Service date Servicing provider Phone# Home visit for evaluation and management of new patient requiring medically appropriate examination and moderate level of medical decision making. If using time, at least 60 minutes [place] [id number] 2024-12-22 No Data Available No Data Availa ble Advance care planning discussion documented in medical record [id number] 2024-12-22 No Data Available No Data Avai audrey Patient screened for fall risk; no falls in the last year or 1 fall with no injury in the last year [id number] 2024-12-22 No Data Available No Data Avail able Most recent systolic blood pressure <130 mm Hg [id number] 2024-12-22 No Data Available No Data Availa ble Most recent dystolic blood pressure <80 mm Hg [id number] 2024-12-22 No Data Available No Data Availa ble Home visit for evaluation and management of established patient requiring medically appropriate examination and low level of medical decision making. If using time, [place] [id number] 2025-01-04 No Data Available No Data Availa ble Most recent systolic blood pressure <130 mm Hg [id number] 2025-01-04 No Data Available No Data Availa ble Most recent dystolic blood pressure <80 mm Hg [id number] 2025-01-04 No Data Available No Data Availa ble Functional Status Functional Category Effective Dates MCT call a ride to dr julianna 2024-12-22 grocery shopping - niece takes him 12-22 lives alone; independent of ADL's 12-22 Mental Status Status Date no cognitive issues were noted 2024-12-02 2 Assessments Date of Service Assessments 2024-12-22 10:30:00 CAD (coronary artery disease)HLD (hyperlipidemia)Heart failureGERD (gastroesophageal reflux disease)Bilateral vocal cord paralysisAllergic rhinitisDizzinessCounseled patient on lifestyle changesType 2 diabetes mellitus with chronic kidney disease 2025-01-04 12:30:00 Hypertensive heart a nd chronic kidney disease with heart failure and stage 1 through stage 4 chronic kidney disease, or unspecified chronic kidney disease - stableCKD stage 3b, GFR 30-44 ml/min - stableType 2 diabetes mellitus with chronic kidney disease - stableSystolic heart failure - stable Plan of Care Date of Service Plans 2024-12-22 10:30:00 Renal f/u - last wee k on ulmonary appt tomorrow 12/23/2024PCP ardiology hronic; stablecontinue pravastatin 40 mg once daily and Plavix 75 mg once dailyheart healthy dietmanaged and followed by cardiologyelevated triglycerides 197 and HDL 32continue pravastatin 40 mg once daily and fish oilsheart healthy dietECHO 02/2023 - EF 30-35%continue carvedilol 3.125 mg BID, Jardiance 25 mg once daily, furosemide 20 mg once and spironolactone 25 mg oncefollowed by cardiologychroniccontinue pantoprazole 40 mg once dailyavoid food triggerspartial arytenoidectomy 08/2024doing wellfollowed by ENTchronic; stablecontinue montelukast 10 mg once daily and Flonase nasal sprayusually occurs when he stands up too quicklyorthostatic hypotension (only multiple meds for HTN) vs medication adv rxnmeclizine 25 mg as neededdrink plenty of zrzbbK2C 7.2 on 12/03/2024, 4+ glucose in urine, random urine creatinine 11.2eGFR 36 on 5continue Jardiance 25 mg once dailyRecommend patient check daily blood sugarsslight improvement of A1C since 07/2024 7.5; continue to monitorDM type 2 managed by PCP ; Patient also managed and followed by renal closelyAdvised patient to stop drinking regular Dr Pepper and ONLY drink diet sodas in moderationPatient is due for diabetic retinopathy eye exam 2025-01-04 12:30:00 [facility] Continue CHF meds as below. Discussed dizziness and reasons to call PCP for hold parameters. F/u with cardiology as plannedStable GFR on review of labs. follows nephrology. Stressed importance of BP control to prevent ckd progression. at least biannual lab testingtrying to cut back on sweets, again discussed cessation of regular soda; continue Jardiance and BG monitoringEF <40 and he is on GDMT is low dose coreg bid, lasix 20, jardiance 25, spironolactone. BP does not tolerate ACEi/ARB/or ARNI Goals Date Goal 2024-12-22 Counseled patient re : overweight BMI, to lose weight, exercise, diet 2024-12-22 Advised patient to s top drinking regular Dr Pepper and ONLY drink diet sodas in moderation Health Concerns Date Concern 2025-01-04 Your patient, [Kenyatta nt full name], [] has been enrolled in [facility]. [facility] is care by a physician and/or advanced practice provider in-home or virtual as an extension of your primary care. We also have registered nurses, pharmacists, community health workers, and social workers that assist with your patient as needed. Please note that your patient will remain attributed to you. If you have any questions, please reach out directly to our team at the phone number above. We will be setting up care conferences with your practice if you want to attend those or we can set up individual care conferences at a more convenient time. [Patient full name] is being seen today through our [facility] program to complete a comprehensive exam. Privacy Practices were agreed upon and signed. This visit is to assist with complex patient care and assist your team in closing any care gaps. Today the following gaps/needs have been identified: 2025-01-04 Your patient, Jay Segal (48) has been enrolled in [facility]. [facility] is care by a physician and/or advanced practice provider in-home or virtual as an extension of your primary care. We also have registered nurses, pharmacists, community health workers, and social workers that assist with your patient as needed. Please note that your patient will remain attributed to you. If you have any questions, please reach out directly to our team at the phone number above. We will be setting up care conferences with your practice if you want to attend those or we can set up individual care conferences at a more convenient time. Jose is being seen today through our [facility] program to complete a comprehensive exam. Privacy Practices were agreed upon and signed. This visit is to assist with complex patient care and assist your team in closing any care gaps. Today the following gaps/needs have been identified:Acute concerns addressed today: working to cut back on carbs 2025-01-04 Medication Changes: 2025-01-04 Medication Changes: none 2025-01-04 Follow Up Recommenda tions: 2025-01-04 Follow Up Recommenda tions: keep appts as is 2025-01-04 [facility]en for [facility] , then re engaged for concern for increased medical needsNo new needs since 2 weeks ago 2025-01-04 Follows cards, nephr erendiraogliz mainlyconfirmed Dr. Corbett PCP 2025-01-04 BPdoes not check bp at homebut is compliant with medsdenies any significant dizziness lately, denies any syncope 2025-01-04 [id number] diet sodat rying to cut back on the regular sodaadmits to more drinking of water
--- OUTSIDE RECORDS SUMMARY | 2025-01-27 07:18 | XMS_ITS | Encounter Summary ---
Author Organization [facility] Healthcare Address [address] [place] [address] Care Team Providers Care Croze Cutter Name Role Phone Tj Corbett MD Primary Care Provider [phone] Encounter Details Date Type Department Care Team (Late st Contact Info) Description 01/26/2025 Telephone [facility] Occupational Therapy [address] [place] [address] Adam Stone, MARTHA Social History Tobacco Use Types Packs/Day Years Used Date Smoking Tobacco: Never Passive Smoke Exposure: Past Smokeless Tobacco: Never AUDIT-C Answer Date Recorded Q1: How often do you have a drink containing alcohol? Never 09/02/2024 Q2: How many drinks containi ng alcohol do you have on a typical day when you are drinking? Patient does not drink Q3: How often do you have si x or more drinks on one occasion? Never 09/02/2024 PHQ-2 Answer Date Recorded PHQ-2 Total Score (If total score is 3 or more points, staff should administer the PHQ-9) 0 12/30/2020 Personal Safety Answer Date Recorded Have you ever been in or are you currently in a harmful physical or emotional relationship or is someone making you feel afraid or unsafe? 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 Georges communicated that she will fulfill that request right now and fax it over. documented in this encounter Plan of Treatment Not on file documented as of this encounter Goals Goal Patient Goal Type Associated Problems Recent Progress Patient-Stated? Author ACO CC Goal - Level of ADL/IADL assistance will meet patient's needs ACO Care Management Kitty Whiting, RN Note: Problem: Inadequate assistance to manage ADL's/IADL's Interventions: - Assess current level of functioning and needs with patient/family. - Assess appropriateness for Home Health. Contact PCP office to start referral process if skilled need is present. - Encourage independent ADL's as appropriate. Ensure patient has the appropriate tools at home to be as independent as possible. - Refer to SW if appropriate and patient is agreeable. documented as of this encounter Visit Diagnoses Not on filedocumented in this encounter Care Teams Croze Cutter Relationship Specialty Start Date End Date Tj Corbett MD [address] [place] [address] PCP - General Family Practice 12/22/24 documented as of this encounter
--- OUTSIDE RECORDS SUMMARY | 2025-01-27 07:18 | XMS_ITS | Encounter Summary ---
Author Organization [facility] Healthcare Address [address] [place] [address] Care Team Providers Care Dockworker Name Role Phone Tj Corbett MD Primary Care Provider [phone] Reason for Visit * Reason Onset Date Comments Insurance Referrals 01/26/2025 LVM at requesting Ins Auth Referral for OT. fax to [phone] or call if any questions [phone] Encounter Details Date Type Department Care Team (Late st Contact Info) Description 01/26/2025 Telephone [facility] Physical Therapy [address] [place] [address] Adam Stone OT Insurance Referrals (LVM at office requesting Ins Auth Referral for OT. 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 fax to [phone] or call if any questions [phone] documented in this encounter Plan of Treatment [...] on filedocumented in this encounter Care Teams Dockworker Relationship Specialty Start Date End Date Tj Corbett MD [address] [place] [address] PCP - General Family Practice 12/22/24 documented as of this encounter
--- OUTSIDE RECORDS SUMMARY | 2025-01-27 07:18 | XMS_ITS | Encounter Summary ---
Author Organization [facility] , [facility] Address [address] [place] [address] Phone Care Team Providers Care Crtts Name Role Phone Tj Corbett MD Primary Care Provider Encounter Details Date Type Department Care Team (Late st Contact Info) Description 12/27/2022 Documentation Only [facility], [facility] [address] [facility] [address] [place] [address] Latesha Lagos DO [address] [facility] [address] [place] [id number] Social History Tobacco Use Types Packs/Day Years Used Date Smoking Tobacco: Never Smokeless Tobacco: Never Alcohol Use Standard Drinks/Week Comments Never 0 (1 standard drink = 0.6 oz pur e alcohol) Sex and Gender Information Value Date Recorded Sex Assigned at Not on file Legal Sex Male 2:12 PM EST Gender Identity Not on file Sexual Orientation Not on file documented as of this encounter Plan of Treatment Upcoming Encounters Date Type Department Care Team (Late st Contact Info) Description 04/13/2025 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
--- OUTSIDE RECORDS SUMMARY | 2025-01-27 07:18 | XMS_ITS | Clinical Summary ---
Author Organization [facility] Address [address] [place] [address] Care Team Providers Care Molded Goods Operator Name Role Phone Tj Corbett MD Primary Care Provider [phone] Allergies No known active allergies Medications spironolactone (ALDACTONE) 25 mg tablet Take 0.5 tablets (12.5 mg total) by mouth daily 15 tablet 11/16/19 21 Active Additional Information Patient taking differently:12.5 mg oral Daily,Indications: hypertension, Informant: Self, Reported on 08/20/2024 carvediloL (COREG) 3.125 mg tablet Take 1 tablet (3.125 mg total) by mouth 2 (two) times a day with meals 60 tablet 11 03/03/20 21 Active pravastatin (PRAVACHOL) 20 mg tabletIndications:h yperlipidemia Take 1 tablet (20 mg total) by mouth every morning Active pantoprazole DR (PROTONIX) 40 mg EC tabletIndications:g astroesophageal reflux disease Take 1 tablet (40 mg total) by mouth every morning Active furosemide (LASIX) 20 mg tabletIndications:E adrian,hypertension Take 1 tablet (20 mg total) by mouth every morning Active omega-3 fatty acids-fish oil 300-1,000 mg capsuleIndications: Heart Health Take 2 capsules (2 g total) by mouth every morning Active fluticasone propionate (FLONASE) 50 mcg/actuation nasal sprayIndications:Al lergic Rhinitis Administer 1 spray into each nostril daily as needed Active clopidogreL (PLAVIX) 75 mg tabletIndications:P eripheral Arterial Thromboembolism Prevention,Had a blood clot in leg one time about 2021 Take 1 tablet (75 mg total) by mouth every morning Active Jardiance 25 mg tabletIndications:t ype 2 diabetes mellitus Take 1 tablet (25 mg total) by 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 Active meclizine (ANTIVERT) 12.5 mg tablet Take 1 tablet (12.5 mg total) by mouth daily as needed for dizziness or nausea Active acetaminophen (TylenoL) 325 mg tabletIndications:P ain Take 1 tablet (325 mg total) by mouth every 4 (four) hours as needed for pain, headaches or fever Active montelukast (SINGULAIR) 10 mg tabletIndications:t o help him breathe better Take 1 tablet (10 mg total) by mouth every morning Active medical supply, miscellaneous (MISCELLANEOUS MEDICAL SUPPLY MISC)Indications:hy poxia 2 L as needed Home Oxygen 2 liters when needed (usually only uses when out and about) Active acetaminophen (TYLENOL) 325 mg tablet Take 2 tablets (650 mg total) by mouth every 6 (six) hours 09/03/19 Active Additional Information Patient not taking.Reported on 09/24/2024 Active Problems Problem Noted Date Diagnosed Date Bilateral complete paralysis of vocal cords or l arynx 08/17/2024 Vocal fold paralysis, bilateral 08/13/2024 Assessment & Plan (08/13/2024 9:59 AM CDT): Avoid over exertion Referral to Laryngology for bilateral vocal fold paralysis versus scarring Influenza A 07/18/2024 Cardiomyopathy, ischemic 03/06/2023 LBBB (left bundle branch block) 03/06/2023 Chronic atrial fibrillation 06/10/2021 Overview (06/10/2021): Assessment & Plan (06/11/2021 12:11 PM COMPOUND SPECIALIST): Controlled -continue home medication amiodarone 200 mg q.d. -continue home medication carvedilol 3.125 mg b.i.d. -apixaban 5 mg b.i.d. Assessment & Plan (06/10/2021 12:24 PM COMPOUND SPECIALIST): -continue home medication amiodarone 200 mg q.d. -continue home medication carvedilol 3.125 mg b.i.d. -apixaban 5 mg b.i.d. COVID-19 06/09/2021 Assessment & Plan (06/11/2021 12:06 PM COMPOUND SPECIALIST): Pt presented for SOB, found to have covid 19 PNA. He required High flow NC but is currently on his home dose of 2L. - will do daily CBC and BMP -baricitinib 2 mg q.d. -dexamethasone 6 mg q.d. Assessment & Plan (06/10/2021 12:18 PM COMPOUND SPECIALIST): -baricitinib 2 mg q.d. -dexamethasone 6 mg q.d. Thrombocytopenia 06/09/2021 Acute kidney injury (BASHIR) with acute tubular nec rosis (ATN) 06/09/2021 Assessment & Plan (06/11/2021 12:10 PM COMPOUND SPECIALIST): Patient noted to have BASHIR with Cr 1.54 over baseline .98 in 01/17/21 Suspect due to 3rd spacing from CHF. -creatinine 1.73 on 06/10 continuing to trend up -being treated with Lasix and spironolactone for CHF will hold due to rising Cr. - 06/10 Assessment & Plan (06/10/2021 12:23 PM COMPOUND SPECIALIST): Patient noted to have BASHIR with Cr 1.54 over baseline .98 in 01/17/21 Suspect due to 3rd spacing from CHF. -creatinine 1.73 on 06/10 continuing to trend up -being treated with Lasix and spironolactone for CHF will hold due to rising Cr. - 06/10 History of percutaneous coronary intervention Deep vein thrombosis (DVT) 12/30/2020 Severe malnutrition 12/01/2020 Hypotension 11/27/2020 CAD (coronary artery disease) 11/27/2020 Assessment & Plan (03/03/2021 2:28 PM CDT): No angina. I will restart carvediolol at low dose now that BP has improved. Assessment & Plan (01/24/2021 2:16 PM CDT): No angina since PCI of LAD and circ. Continue plavix and eliquis. Type 2 diabetes mellitus 11/27/2020 Assessment & Plan (06/11/2021 12:07 PM COMPOUND SPECIALIST): Glucose has been controlled - continue SSI Assessment & Plan (06/10/2021 12:17 PM COMPOUND SPECIALIST): -sliding scale lispro -NPH insulin with steroid pharmacy dosing Chronic systolic (congestive) heart failure 11/02 Assessment & Plan (06/11/2021 12:09 PM COMPOUND SPECIALIST): Patient respiration improving with diuretic treatment. 03/03/2021 Echo showed LV EF= 37% -Lasix 40 mg IV b.i.d., on hold due to rising Cr -Spironolactone 12.5 mg q.d. Ischemic cardiomyopathy 11/27/2020 Assessment & Plan (06/11/2021 12:09 PM COMPOUND SPECIALIST): Continue as planned under Systolic CHF Assessment & Plan (03/03/2021 2:27 PM CDT): Improving LVEF. Verify LVEF by MUGA before stopping Lifevest. Assessment & Plan (01/24/2021 2:14 PM CDT): Reassess LV function now that we are 91 days since revasculaization. If LVEF < 35%, then refer for ICD implantation. Chest pain 11/26/2020 NSTEMI (non-ST elevated myocardial infarction) 0 10/14/2020 Overview (10/14/2020): Added automatically from request for surgery [id number] HLD (hyperlipidemia) 02/24/2017 On continuous oral anticoagulation Chronic respiratory failure with hypoxia Resolved Problems Problem Noted Date Diagnosed Date Resolved Date Deep vein thrombosis (DVT) 12/29/2020 0 12/30/2020 Encounters Date Type Department Care Team Description 01/26/2025 Telephone [facility] Occupational Therapy [address] [place] [address] Adam Stone OT 01/26/2025 Telephone [facility] Physical Therapy [address] [place] [address] Adam Stone OT Insurance Referrals (LVM at Dr office requesting Ins Auth Referral for OT. fax to [phone] or call if any questions [phone]) 12/22/2024 Telephone [facility] - [facility] [address] [facility] [address] [place] [address] Roosevelt Poe 12/03/2024 9:20 AM CDT Lab [facility] [address] [place] [address] from Last 3 Months Immunizations Immunization Administration Dates Next Due Influenza, Unspecified 02/02/2024 Pfizer SARS-CoV-2 Monovalent Vaccination (12+ Yrs) PURPLE 06/09/2021(Deferred: Contraindication) Surgical History Surgery Date Site/Laterality Comments CARDIAC STENT PLACEMENT 10/17/2020 1. Successful stenting of the mid left anterior descending using 2.5 x 20 mm Synergy stent. 2. Successful angioplasty of the 1st obtuse marginal 2 mm balloon. 3. Successful Impella device removal from the right femoral artery ROTATOR CUFF REPAIR 06/03/1999 - 06/02/2000 Left CATARACT EXTRACTION W/ INTRAOCULAR LENS IMPLANT 06/03/2017 - 06/02/2018 Bilateral CARDIAC DEFIBRILLATOR PLACEMENT 04/02/2023 CARDIAC CATHETERIZATION 11/28/2020 COLONOSCOPY 2020 COLONOSCOPY performed by Loc Abreu MD at [facility] GI CARDIAC CATHETERIZATION 02/26/2017 Procedure: Cardiac Cath; Surgeon: Oracio Watkins MD; Location: [facility]; Service: Interventional Radiology TONSILLECTOMY as a child Medical History Medical History Date Comments CHF (congestive heart failure) (HCC) Coronary artery disease Diabetes mellitus (HCC) Hypertension Stroke (HCC) Chronic kidney disease Heart disease H/O being hospitalized 07/18/2024 Hard time breathing Hard to intubate Family History Medical History Relation Name Comments No Known Problems Brother Cancer Father Cancer Mother Cancer Sister Anesthesia problems Neg Hx Malig Hypertension Neg Hx Malig Hyperthermia Neg Hx Pseudochol deficiency Neg Hx Relation Name Status Comments Brother Father Mother Sister Social History Tobacco Use Types Packs/Day Years Used Date Smoking Tobacco: Never Passive Smoke Exposure: Past Smokeless Tobacco: Never Tobacco Cessation:Counseling Given: Not Answered AUDIT-C Answer Date Recorded Q1: How often [...] on file Legal Sex Male 10:32 AM COMPOUND SPECIALIST Gender Identity Not on file Sexual Orientation Not on file Obstetrics History Last Filed Vital Signs Vital Sign Reading Time Taken Comments Blood Pressure 110/65 09/17/2024 10:54 AM CDT Pulse 90 09/17/2024 10:54 AM CDT Temperature 36.3 C (97.3 F) 09/17/2024 10:54 AM CDT Respiratory Rate 16 09/02/2024 2:00 PM CDT Oxygen Saturation 98% 09/17/2024 10: 54 AM CDT room air sitting down Inhaled Oxygen Concentration - - Weight 71.2 kg (157 lb) 09/24/2024 9:11 AM CDT Height 160 cm (5' 3) 09/17/2024 10:54 AM CDT Body Mass Index 27.81 09/17/2024 10:54 AM CDT Plan of Treatment Health Maintenance Due Date Last Done Comments Colon Cancer Screening-Colonoscopy 1950 Hepatitis C Screening 1950 Dilated Eye Exam 1950 Foot Exam 1950 Hepatitis B Screening 11/23/1967 Well Visit 65+ 2014 Zoster Vaccine (2 of 2) 07/30/2019 06/04/2019 DTaP/Tdap/Td Vaccine (2 - Td or Tdap) 08/02/2019 08/01/2009 Depression Screening 12/29/2021 12/29/2020 Influenza Vaccine (#1) 2025 , 05/05/2019, 02/14/2018, Additional history exists Hemoglobin A1C 06/05/2025 12/03/2024, 10/01, 07/29/2024, Additional history exists Fall Risk Assessment 09/02/2025 09/02/2024 Albumin Creatinine Ratio, Urine 10/19/2025 10/19/2024, 07/30/2023, 03/21/2023 Lipid Panel 12/03/2025 12/03/2024, 10/01, 07/29/2024, Additional history exists eGFR 12/03/2025 12/03/2024, 10/01, 07/29/2024, Additional history exists Pneumococcal vaccine 65+ Completed 04/12/2017, 01/01 Goals Goal Patient Goal Type Associated Problems [...] SW if appropriate and patient is agreeable. Medical Devices Implanted Type Area Package Handler Device Identifier Shelf Expiration Date Model / Serial / Lot Medtronic Inc Tyrx Absorbable Antibacterial Envelope-Large 3.3x2.9in [id number] - [id number] Implanted:Qty: 1 on 04/02/2023 by Brandon Watkins MD at [facility] Left: Infraclavicular Anterior Chest Wall Medtronic Inc 01/03/2024 [id number] / / [id number] Biotronik Inc Defibrillator Cardiac Rivacor Promri Implantable Df4 Is4 Sterile Latex Free 7 Hft Qp [id number] - [id number] - [id number] Implanted:Qty: 1 on 04/02/2023 by Brandon Watkins MD at [facility] ICD Left: Infraclavicular Anterior Chest Wall Biotronik Inc 10/01/2023 [id number] / [id number] / Biotronik Inc Lead Drt Df4 S65 Icd Promri Plexa Tachycardia Devices [id number] - [id number] Implanted:Qty: 1 on 04/02/2023 by Brandon Watkins MD at [facility] Lead Right: Ventricle Biotronik Inc 11/01/2023 [id number] / / Biotronik Inc Solia S 45cm Bipolar Active Fixation Lead Pacing Steroid Eluting [id number] - [id number] - [id number] Implanted:Qty: 1 on 04/02/2023 by Brandon Watkins MD at [facility] Lead Right: Atrial Appendage Biotronik Inc 03/02/2025 [id number] / [id number] / Biotronik Inc Sentus Promri Otw Quadripolar Left Ventricular Lead Icd L-85/49 213299 - [id number] - [id number] Implanted:Qty: 1 on 04/02/2023 by Brandon Watkins MD at [facility] Lead N/A: Coronary Sinus Biotronik Inc 01/31/2025 [id number] / [id number] / Abiomed Inc [id number] Device Ventricular Assist 17.4x13.8in Impella Cp 9.3in 10-40 - [id number] Implanted:Qty: 1 on 10/14/2020 by Benigno Ledesma MD at [facility] Other - see comments [employer] Inc 06/02/2022 0048-00 [id number] Daig Kristen/St [employer] [id number] Angio-Seal Evolution 6fr .035in Guidewire Bypass Tube Suture - [id number] Implanted:Qty: 1 on 11/28/2020 by Benigno Ledesma MD at [facility] Other - see comments [employer] Kristen 07/31/2021 [id number] / / [id number] Wat[employer] Kristen [id number] Synergy 2.75mm 24mm 144cm Radiopaque 1 Access Port Inflation - [id number] Implanted:Qty: 1 on 10/14/2020 by Benigno Ledesma MD at [facility] Stent [employer] Kristen 03/18/2022 [id number] / / [id number] [employer] Kristen [id number] Synergy 2.5mm 16mm 144cm Radiopaque 1 Access Port Inflation Lumen - [id number] Implanted:Qty: 1 on 10/14/2020 by Benigno Ledesma MD at [facility] Stent [employer] Kristen 03/18/2022 [id number] / / [id number] [employer] Kristen [id number] Synergy 2.5mm 20mm 144cm Radiopaque 1 Access Port Inflation Lumen - [id number] Implanted:Qty: 1 on 10/17/2020 by Darwin Griggs MD at [facility] Stent [employer] Kristen [id number] / / Daig Kristen[employer] [id number] Angio-Seal Evolution 6fr .035in Guidewire Bypass Tube Suture - [id number] Implanted:Qty: 1 on 10/14/2020 by Benigno Ledesma MD at [facility] [employer] Kristen 07/03/2021 [id number] / / [id number] Daig [employer] [id number] Angio-Seal Evolution 6fr .035in Guidewire Bypass Tube Suture - [id number] Implanted:Qty: 1 on 10/17/2020 by Darwin Griggs MD at [facility] Right: Femoral [employer] Kristen [id number] / / Daig Kristen[employer] [id number] Angio-Seal Evolution 6fr .035in Guidewire Bypass Tube Suture - [id number] Implanted:Qty: 1 on 10/17/2020 by Darwin Griggs MD at [facility] Right: Femoral [employer] Kristen [id number] / / Daig [employer]en[employer] [id number] Angio-Seal Evolution 6fr .035in Guidewire Bypass Tube Suture - [id number] Implanted:Qty: 1 on 10/17/2020 by Darwin Griggs MD at [facility] Right: Femoral [employer] Kristen [id number] / / Daig Kristen[employer] [id number] Angio-Seal Vip Bondek-Plus 8fr .038in 70cm Hemostatic Latex Free - [id number] Implanted:Qty: 1 on 10/17/2020 by Darwin Griggs MD at [facility] Right: Femoral [employer] Kristen [id number] / / Procedures Procedure Name Priority Date/Time Associated Diagnosis Comments EGFR Routine 12/03/2024 9:26 AM CDT DIFFERENTIAL AUTO Routine 12/03/2024 9:2 6 AM CDT PROTEIN / CREATININE RATIO, URINE, RANDOM Routine 12/03/2024 9:26 AM CDT LIPID PANEL Routine 12/03/2024 9:26 AM CDT VITAMIN D 25 HYDROXY Routine 12/03/2024 9:26 AM CDT URINALYSIS AND REFLEX TO MICROSCOPIC Routine 12/03/2024 9:26 AM CDT PTH Routine 12/03/2024 9:26 AM CDT PHOSPHORUS Routine 12/03/2024 9:26 AM CDT HEMOGLOBIN A1C Routine 12/03/2024 9:26 AM CDT CBC WITH AUTO DIFFERENTIAL Routine 12/03/2024 9:26 AM CDT COMPREHENSIVE METABOLIC PANEL Routine 12/03/2024 9:26 AM CDT ALBUMIN CREATININE RATIO, URINE Routine 10/19/2024 8:22 AM CDT from Last 3 Months or Most Recently Relevant to Health Maintenance Results * (ABNORMAL) eGFR (12/03/2024 9:26 AM CDT) eGFR 36(L) >=60 mL/min/1. 73 m2 Comment: Interpretive Data Reference Interval Normal >/= 90 mL/min/1.73m2 Mildly decreased* 60 - 89 mL/min/1.73m2 Mildly to moderately decreased 45 - 59 mL/min/1.73m2 Moderately to severely decreased 30 - 44 mL/min/1.73m2 Severely decreased 15 - 29 mL/min/1.73m2 Kidney Failure < 15 mL/min/1.73m2 *Relative to young adult level Estimated glomerular filtration rate is determined by the 2020 CKD-EPI equation recommended by the National Kidney Foundation (A Unifying Approach to GFR Estimation: Recommendations of the NKF-ASK Task Force on Reassessing the Inclusion of Race in Diagnosing Kidney Disease, JASN 2020). The CKD-EPI equation should not be used for patients with unstable renal function and has not been validated in children and those over 70. Current interpretive data was last reviewed 2021. Blood 12/03/2024 9:26 AM CDT 12/03/2024 9:36 AM CDT us Austin Aranda MD LAB BLOOD ORDERABLES Final Result [facility] ([place]) [address] [facility] Department [place] [address] * Differential, auto (12/03/2024 9:26 AM CDT) Neutrophil abs 5.86 1.50 - 6.50 K/cumm Imm gran abs 0.05 0.00 - 0.10 K/cumm [facility] ([place]) Lymphocyte abs 1.27 0.80 - 3.30 K/cumm [facility] ([place]) Monocyte abs 0.61 0.20 - 0.80 K/cumm [facility] ([place]) Eosinophil abs 0.21 0.00 - 0.50 K/cumm [facility] ([place]) Basophil abs 0.08 0.00 - 0.10 K/cumm [facility] ([place]) Neutrophil pct 72.6 % [facility] ([place]) Comment: Interpretive Data Percent cell count reference ranges are not reported, since discordance with absolute values may lead to misinterpretation of CBC data. Current Interpretive Data was last revised on 2017. Imm gran pct 0.6 % [facility] ([place]) Comment: Interpretive Data Percent cell count reference ranges are not reported, since discordance with absolute values may lead to misinterpretation of CBC data. Current Interpretive Data was last revised on 2017. Lymphocyte pct 15.7 % [facility] ([place]) Comment: Interpretive Data Percent cell count reference ranges are not reported, since discordance with absolute values may lead to misinterpretation of CBC data. Current Interpretive Data was last revised on 2017. Monocyte pct 7.5 % [facility] ([place]) Comment: Interpretive Data Percent cell count reference ranges are not reported, since discordance with absolute values may lead to misinterpretation of CBC data. Current Interpretive Data was last revised on 2017. Eosinophil pct 2.6 % [facility] ([place]) Comment: Interpretive Data Percent cell count reference ranges are not reported, since discordance with absolute values may lead to misinterpretation of CBC data. Current Interpretive Data was last revised on 2017. Basophil pct 1.0 % [facility] ([place]) Comment: Interpretive Data Percent cell count reference ranges are not reported, since discordance with absolute values may lead to misinterpretation of CBC data. Current Interpretive Data was last revised on 2017. Blood 12/03/2024 9:26 AM CDT 12/03/2024 9:38 AM CDT us Austin Aranda MD LAB BLOOD ORDERABLES Final Result [facility] ([place]) [address] [facility] Department [place] [address] * (ABNORMAL) Urinalysis reflex to microscopic (12/03/2024 9:26 AM CDT) Color, ur Yellow Yellow Clarity, ur Clear Clear [facility] ([place]) Specific gravity, ur 1.026 1.003 - 1.030 [facility] ([place]) pH, urine 6.0 [facility] ([place]) Comment: Interpretive Data U rine pH is affected by diet, medications, systemic acid-base disturbances, and renal tubular function. pH may affect urinary stone formation. For example, urine pH below 6.0 may help reduce the tendency for calcium phosphate stones and pH greater than 6.0 may reduce the tendency for uric acid stone formation. Source: [facility] Current Interpretive Data was last revised on 2017 Protein, ur ql Negative Negative [facility] ([place]) Glucose, ur ql 4+(A) Negative [facility] ([place]) Ketones, ur Negative Negative [facility] ([place]) Bilirubin, ur Negative Negative [facility] ([place]) Blood, ur Negative Negative [facility] ([place]) Urobilinogen, ur 2.0(A) <2.0 mg/dL [facility] ([place]) Nitrite, ur Negative Negative [facility] ([place]) Leukocyte esterase, ur Negative Negative [facility] ([place]) UA reflex comment Reflex conditions for microscopic UA not met. [facility] ([place]) Urine, bladder 12/03/2024 9: 26 AM CDT 12/03/2024 9:56 AM CDT us Austni Aranda MD LAB URINE ORDERABLES Final Result [facility] ([place]) [address] [facility] Department [place] [address] * (ABNORMAL) CBC with auto differential (12/03/2024 9:26 AM CDT) WBC 8.08 3.80 - 9.90 K/cumm Hgb 16.1 13.0 - 17.5 g/dL [facility] ([place]) Hct 46.9 38.9 - 50.3 % [facility] ([place]) Plt 169 150 - 400 K/cumm [facility] ([place]) MPV 8.7(L) 9.1 - 12.3 fL [facility] ([place]) RBC 5.21 4.30 - 5.80 M/cumm [facility] ([place]) MCV 90.0 81.3 - 96.4 fL [facility] ([place]) MCH 30.9 27.1 - 33.3 pg [facility] ([place]) MCHC 34.3 32.3 - 35.7 g/dL [facility] ([place]) RDW CV 13.3 11.1 - 14.9 % [facility] ([place]) RDW SD 44.1 35.7 - 48.1 fL [facility] ([place]) NRBC abs 0.00 0.00 - 0.01 K/cumm [facility] ([place]) Blood 12/03/2024 9:26 AM CDT 12/03/2024 9:38 AM CDT Austin Aranda MD LAB BLOOD ORDERABLES Final Result Performing Organization Address [facility] Co de Phone Number [facility] ([place]) [address] [facility] [place] [address] * Protein / creatinine ratio, urine, random (12/03/2024 9:26 AM CDT) Protein, ur, quant 11.2 mg/dL Comment: Interpretive Data No reference range established. Current interpretive data was last revised 2018. Creatinine Ur 114.2 mg/dL [facility] ([place]) Comment: Interpretive Data No reference range established. Current interpretive data was last revised 2018. Protein/creatinin e ratio 98.1 0.0 - 180.0 mg/g CR [facility] ([place]) Urine 12/03/2024 9:26 AM CDT 12/03/2024 9:56 AM CDT Austin Aranda MD LAB URINE ORDERABLES Final Result Performing Organization Address City/[facility]/ZIP Co de Phone Number [facility] ([place]) [address] [facility] [place] [address] * (ABNORMAL) Vitamin D 25 hydroxy (12/03/2024 9:26 AM CDT) Vitamin D 25-OH 19(L) 30 - 80 ng/mL Blood 12/03/2024 9:26 AM CDT 12/03/2024 9:35 AM CDT Austin Aranda MD LAB BLOOD ORDERABLES Final Result [facility] ([place]) [address] [place] [address] * Phosphorus (12/03/2024 9:26 AM CDT) Pathologist [facility] Phosphorus, pl 3.4 2.3 - 4.5 mg/dL Blood 12/03/2024 9:26 AM CDT 12/03/2024 9:36 AM CDT Austin Aranda MD LAB BLOOD ORDERABLES Final Result Performing Organization Address [facility] Co de Phone Number [facility] ([place]) [address] [place] [address] * PTH (12/03/2024 9:26 AM CDT) [facility] PTH 45 15 - 65 pg/mL Blood 12/03/2024 9:26 AM CDT 12/03/2024 9:38 AM CDT Austin Aranda MD LAB BLOOD ORDERABLES Final Result Performing Organization Address City/[facility] Co de Phone Number [facility] ([place]) [address] [facility] [place] [address] * (ABNORMAL) Hemoglobin A1c (12/03/2024 9:26 AM CDT) Hgb A1C 7.2(H) 4.0 - 5.6 % Estimated Average Glucose 160 mg/dL [facility] ([place]) Comment: The ADA recommends reporting an estimated Average Glucose (eAG) with all Hemoglobin A1c results using the equation derived from a study of 507 normal and diabetic adults. Minority populations were underrepresented and children were not included. (Diabetes Care 31:2210-9631, 2008). The eAG is not equivalent to a fasting glucose. Blood 12/03/2024 9:26 AM CDT 12/03/2024 9:36 AM CDT us Austin Aranda MD LAB BLOOD ORDERABLES Final Result [facility] ([place]) [address] [facility] Department [place] [address] * (ABNORMAL) Lipid panel (12/03/2024 9:26 AM CDT) Cholesterol 163 30 - 199 mg/dL Comment: Interpretive Data Ages < or = 19 years Acceptable: <170 mg/dL Borderline high: 170-199 mg/dL High: >or= 200 mg/dL Ages > or = 20 years Desirable: <200 mg/dL Borderline high: 200-239 mg/dL High: >or= 240 mg/dL Literature References: 1. Expert Panel on Integrated Guidelines for Cardiovascular Health and Risk Reduction in Children and Adolescents. Pediatrics 2011;128:S213 2. NCEP Expert Panel. Circulation 2004;110:227 Current Interpretive Data was last revised on 2018. Triglycerides 194(H) <=149 mg/dL [facility] ([place]) Comment: Interpretive Data Ages < or = 9 years Acceptable: <75 mg/dL Borderline high: 75-99 mg/dL High: >or= 100 mg/dL Ages 10 to 20 years Acceptable: <90 mg/dL Borderline high: 90-129 mg/dL High: >or= 130 mg/dL Ages > or = 20 years Desirable: <150 mg/dL Borderline high: 150-199 mg/dL High: 200-499 mg/dL Very high: >or= 499 mg/dL Literature References: 1. Expert Panel on Integrated Guidelines for Cardiovascular Health and Risk Reduction in Children and Adolescents. Pediatrics 2011;128:S213 2. NCEP Expert Panel. Circulation 2004;110:227 Current Interpretive Data was last revised on 2018. HDL 32(L) >=40 mg/dL DANIELLE MARIE (DEDE) Comment: Interpretive Data Ages < or = 19 years Acceptable: >45 mg/dL Borderline low: 40-45 mg/dL Low: <40 mg/dL Ages > or = 20 years Desirable: >or= 60 mg/dL Low: <40 mg/dL Literature References: 1. Expert Panel on Integrated Guidelines for Cardiovascular Health and Risk Reduction in Children and Adolescents. Pediatrics 2011;128:S213 2. NCEP Expert Panel. Circulation 2004;110:227 Current Interpretive Data was last revised on 2018. LDL, calculated 97 <=129 mg/dL DANIELLE MARIE (DEDE) Comment: Interpretive Data Ages < or = 19 years Acceptable: <110 mg/dL Borderline high: 110-129 mg/dL High: >or= 130 mg/dL Ages > or = 20 years Optimal: <100 mg/dL Near optimal: 100-129 mg/dL Borderline high: 130-159 mg/dL High: >160 mg/dL Calculated using the Jeffry LDL-C estimating equation. This equation was implemented on 2024. Prior to this date LDL-C was estimated using the Friedewald equation. Literature References: 1. Expert Panel on Integrated Guidelines for Cardiovascular Health and Risk Reduction in Children and Adolescents. Pediatrics 2011;128:S213 2. NCEP Expert Panel. Circulation 2004;110:227 3. Jeffry Escobar et al. BRIA Cardiol. 2019October 01;5(5):540-548. doi: 10.1001/jamacardio.2020.0013 Current Interpretive Data was last revised on 2024. Non-HDL Cholesterol 131 mg/dL DANIELLE MARIE (DEDE) Comment: Interpretive Data Ages < or = 19 years Acceptable: <120 mg/dL Borderline high: 120-144 mg/dL High: >145 mg/dL Ages > or = 20 years When triglycerides are >200 mg/dL, Non-HDL cholesterol is a secondary target of therapy with treatment goals that are 30 mg/dL greater than the LDL cholesterol target. Literature References: 1. Expert Panel on Integrated Guidelines for Cardiovascular Health and Risk Reduction in Children and Adolescents. Pediatrics 2011;128:S213 2. NCEP Expert Panel. Circulation 2004;110:227 Current Interpretive Data was last revised on 2018. Chol/HDL ratio 5 PAULA MARIE (DEDE) Blood 12/03/2024 9:26 AM CDT 12/03/2024 9:36 AM CDT Austin Aranda MD LAB BLOOD ORDERABLES Final Result DANIELLE MARIE (DEDE) 1 [facility] Department [place] [address] * (ABNORMAL) Comprehensive metabolic panel (12/03/2024 9:26 AM CDT) Sodium 136 135 - 145 mmol/L Potassium, pl 4.1 3.3 - 4.9 mmol/L [facility] ([place]) Chloride 99 97 - 110 mmol/L [facility] ([place]) CO2 20(L) 22 - 32 mmol/L [facility] ([place]) Anion gap 17(H) 2 - 15 mmol/L [facility] ([place]) BUN 29(H) 6 - 25 mg/dL [facility] ([place]) Creatinine 1.92(H) 0.80 - 1.30 mg/dL [facility] ([place]) Glucose 170 70 - 199 mg/dL [facility] ([place]EDE) Comment: Interpretive Data Fasting glucose >/= 126 mg/dl is diagnostic for diabetes. Fasting is defined as no caloric intake for at least 8 hours. Fasting glucose between 100 mg/dl to 125 mg/dl is diagnostic of prediabetes. In a patient with classic symptoms of hyperglycemia or hyperglycemic crisis, a random glucose >/= 200 mg/dl is diagnostic for diabetes. In the absence of unequivocal hyperglycemia, results should be confirmed by repeat testing. The classification and Diagnosis of Diabetes Diabetes Care 2021; 46: S19-S40. Current interpretive data was last revised 2022. Calcium 9.9 8.5 - 10.3 mg/dL [facility] (DEDE) Bilirubin, total 0.7 0.1 - 1.2 mg/dL [facility] ([place]EDE) Protein, pl 7.1 6.5 - 8.5 g/dL [facility] ([place]) Albumin 4.2 3.5 - 5.0 g/dL [facility] ([place]) Alk phos 98 40 - 130 Units/L [facility] ([place]) ALT 11 7 - 55 Units/L [facility] ([place]) AST 14 10 - 50 Units/L [facility] ([place]EDE) Blood 12/03/2024 9:26 AM CDT 12/03/2024 9:36 AM CDT us Austin Aranda MD LAB BLOOD ORDERABLES Final Result Performing Organization Address [facility] Co de Phone Number DANIELLE MARIE ([place]) 1 [facility] Department [place] [employer] [place] [address] * Albumin Creatinine Ratio, Urine (10/19/2024 8:22 AM CDT) Albumin Ur <12.0 mg/L Comment: Interpretive Data No reference range established. Current interpretive data was last revised 2018. Testing performed by: [facility], [address] [place] [address]., [id number] Creatinine Ur 72.9 mg/dL DANIELLE FRANK ([place]) Comment: Interpretive Data No reference range established. Current interpretive data was last revised 2018. Testing performed by: [facility], [address] [place] [address]., [id number] Albumin Creatinine Ratio, Ur <16 1 - 29 mg/g REEMAANNA FRANK ([place]) Comment:Testing performed by : [facility], [address] [place] [address]., [id number] Urine 10/19/2024 8:22 AM CDT 10/19/2024 12:45 PM CDT Narrative DANIELLE MARIE ([place]) - 10/19/2024 1:25 PM CDT [phone] us Tj Corbett MD LAB URINE ORDERABLES Alma l Result Performing Organization Address City/[facility] Co de Phone Number DANIELLE MARIE ([place]) 1 [facility] [place] [address] from Last 3 Months or Most Recently Relevant to Health Maintenance Insurance [facility] Member Subscriber Plan / Payer (Ef fective 2021-Present) Name:Jose Segal Relation to Subscriber:Self Name:Jose Segal Payer ID:[id number] ([facility]) Type:MEDICARE RISK OTHER Address: [address] [facility] Member Subscriber Plan / Payer (Ef fective 2021-Present) Name:Jose Segal Relation to Subscriber:Self Name:Jose Segal Payer ID:[id number] ([facility]) Type:MEDICARE RISK OTHER Address: [address] [facility] Advance Directives For more information, please contact: [phone] * Full Code (Latest Code Status on File) Date Activated Date Inactivated Comments 07/18/2024 4:28 PM 07/23/2024 6:50 PM * Full Code Date Activated Date Inactivated Comments 06/09/2021 6:31 AM 06/11/2021 8:25 PM * Full Code Date Activated Date Inactivated Comments 12/29/2020 10:58 PM 12/31/2020 6:43 PM * Full Code Date Activated Date Inactivated Comments 11/27/2020 12:06 AM 12/02/2020 9:00 PM * Full Code Date Activated Date Inactivated Comments 10/14/2020 5:22 PM 11/15/2020 12:04 AM Care Teams Molded Goods Operator Relationship Specialty Start Date End Date Tj Corbett MD [address] [place] [address] PCP - General Family Practice 12/22/24
--- OUTSIDE RECORDS SUMMARY | 2025-01-27 07:18 | XMS_ITS | Clinical Summary ---
Author Organization [facility] Facility Address [address] [address] Care Team Providers Care Tumbling Machine Operator Name Role Phone Tj Corbett MD Primary Care Provider [phone] Allergies No known active allergies Medications * This document contains information received from the source organization and may not represent a complete record from that organization. carvedilol (COREG) 3.125 MG tablet Take 3.125 mg by mouth in the morning and 3.125 mg in the evening. Take with meals. 1 06/19/19 29 Active clopidogrel (PLAVIX) 75 MG tablet Take 75 mg by mouth 1 (one) time each day 7 Active spironolactone (ALDACTONE) 25 MG tablet Take 25 mg by mouth in the morning. 1 Active pravastatin (PRAVACHOL) 20 MG tablet Take 20 mg by mouth 1 (one) time each day Active pantoprazole (PROTONIX) 40 MG EC tablet Take 40 mg by mouth 1 (one) time each day before breakfast Do not crush, chew, or split. Active Readfield-3 Fatty Acids (FISH OIL PO) Take 2 g by mouth 1 (one) time each day Active fluticasone (FLONASE) 50 MCG/ACT nasal spray Administer 1 spray into each nostril 1 (one) time each day Active meclizine (ANTIVERT) 12.5 MG tablet Take 12.5 mg by mouth 1 (one) time each day Active Empagliflozin (Jardiance) 25 MG tablet Take 25 mg by mouth 1 (one) time each day in the morning Active furosemide (LASIX) 20 MG tablet Take 1 tablet by mouth once daily 90 tablet Active Active Problems Problem Noted Date Diagnosed Date Paralysis of vocal cords and larynx 12/15/2024 Overview (12/15/2024): S/P ENT surgery 09/02/24 Essential hypertension 12/10/2023 Stage 3b chronic kidney disease 10/31/2021 Hearing loss 09/19/2021 Dependence on supplemental oxygen 09/19/2021 Chronic respiratory failure with hypoxia 022 Chronic obstructive pulmonar y disease, not otherwise specified 09/18/2021 Chronic atrial fibrillation 06/10/2021 Overview (09/18/2021): Last Assessment & Plan: Controlled -continue home medication amiodarone 200 mg q.d. -continue home medication carvedilol 3.125 mg b.i.d. -apixaban 5 mg b.i.d. Acute renal impairment 06/09/2021 Overview (09/18/2021): Last Assessment & Plan: Patient noted to have BASHIR with Cr 1.54 over baseline .98 in 01/17/21 Suspect due to 3rd spacing from CHF. -creatinine 1.73 on 06/10 continuing to trend up -being treated with Lasix and spironolactone for CHF will hold due to rising Cr. - 06/10 Thrombocytopenia 06/09/2021 Chronic systolic heart failure 11/27/2020 Overview (09/18/2021): Last Assessment & Plan: Patient respiration improving with diuretic treatment. 03/03/2021 Echo showed LV EF= 37% -Lasix 40 mg IV b.i.d., on hold due to rising Cr -Spironolactone 12.5 mg q.d. Ischemic cardiomyopathy 11/27/2020 Overview (09/18/2021): Last Assessment & Plan: Continue as planned under Systolic CHF Coronary arteriosclerosis 11/27/2020 Overview (09/18/2021): Last Assessment & Plan: No angina. I will restart carvediolol at low dose now that BP has improved. Hypotension 11/27/2020 Type 2 diabetes mellitus without complication Overview (09/18/2021): Last Assessment & Plan: Glucose has been controlled - continue SSI Hyperlipidemia 02/24/2017 Encounters Date Type Department Care Team Description 12/15/2024 11:00 AM CDT [facility] Visit [facility] [address] [facility] [address] [place] [phone] Austin Aranda MD Stage 3b chronic kidney disease (HCC) (Primary Dx); Essential hypertension; Type 2 diabetes mellitus without complication (HCC); Chronic systolic heart failure (HCC); Coronary arteriosclerosis, not otherwise specified; Mixed hyperlipidemia; Chronic obstructive pulmonary disease, not otherwise specified (HCC); Hearing loss <Bilateral>; Paralysis of vocal cords and larynx, bilateral 12/14/2024 Documentation Only [facility] [address] [phone] Austin Aranda MD 11/06/2024 Orders Only [place] [facility] [address] [phone] Deepthi Bruno Stage 3b chronic kidney disease (HCC) (Primary Dx); Essential hypertension from Last 3 Months Family History Medical History Relation Comments Cancer Father Cancer Mother Relation Status Comments Father Mother Social History Tobacco Use Types Packs/Day Years Used Date Smoking Tobacco: Never Smokeless Tobacco: Never Tobacco Cessation:Counseling Given: Not Answered Alcohol Use Standard Drinks/Week Comments Never 0 (1 standard drink = 0.6 oz pur e alcohol) Sex and Gender Information Value Date Recorded Sex Assigned at Not on file Legal Sex Male 2:12 PM EST Gender Identity Not on file Sexual Orientation Not on file Last Filed Vital Signs Vital Sign Reading Time Taken Comments Blood Pressure 98/58 12/15/2024 10:36 AM CDT Pulse 68 12/15/2024 10:36 AM CDT Temperature 36.1 C (97 F) 12/15/2024 10:36 AM CDT Respiratory Rate 18 12/15/2024 10:36 AM CDT Oxygen Saturation 96% 12/15/2024 10:36 AM CDT Inhaled Oxygen Concentration - - Weight 76.2 kg (168 lb) 12/15/2024 10:36 AM CDT Height 162.6 cm (5' 4) 06/02/2024 10:22 AM UNEMPLOYMENT BENEFITS CLAIMS TAKER Body Mass Index 28.84 06/02/2024 10:22 AM UNEMPLOYMENT BENEFITS CLAIMS TAKER Plan of Treatment Upcoming Encounters Date Type Department Care Team (Late st Contact Info) Description 04/13/2025 10:15 AM UNEMPLOYMENT BENEFITS CLAIMS TAKER Office Visit [facility] [address] [facility] [address] [place] [phone] Austin Aranda MD [address] [phone] Health Maintenance Due Date Last Done Comments Pneumococcal Vaccine: 50+ Years (1 of 2 - PCV) 1968 Colorectal Cancer Screening: Annual FOBT 1998 Colorectal Cancer Screening: Colonoscopy 1998 Colorectal Cancer Screening: Sigmoidoscopy 1998 Diabetes: Ophthalmology Exam 07/31/2021 Diabetes: Pedal Pulse Checked 07/31/2021 Diabetes: Sensory Foot Exam 07/31/2021 Diabetes: Visual Foot Exam 07/31/2021 Influenza Vaccine (#1) 2025 02/02/2024 Diabetes: Hemoglobin A1C 03/05/2025 025, 10/19/2024, 10/19/2024, Additional history exists Hepatitis B Vaccine Aged Out No longe r eligible based on patient's age to complete this topic Procedures Procedure Name Priority Date/Time Associated Diagnosis Comments EXT RESULT ENTRY Routine 12/03/2024 EXT RESULT ENTRY Routine 10/19/2024 from Last 3 Months or Most Recently Relevant to Health Maintenance Results * (ABNORMAL) EXT RESULT ENTRY (12/03/2024) Only the most recent of2 resultswithin the time period is included. WBC 8.08 3.3 - 10.0 10*3/ML Red Blood Cell Count 5.21 Hemoglobin 16.1 13.5 - 17.5 Hematocrit 46.9 41.0 - 53.0 Platelets 169 150 - 399 10*3/UL MCV 90.0 82.0 - 108.0 Protein Urine Random 11.2 Creatinine, Urine Random 114.2 mg/dL Urine Protein/Creatinin e Ratio 98.1 mg/g creat Glucose, UA 4+ mg/dL Bilirubin, UA Negative Ketones, UA Negative Urine Specific Jewett 1.026 Blood, UA Negative Vahe/ul pH, UA 6.0 Protein, UA Negative mg/dL Urobilinogen, UA 2.0 Nitrite, UA Negative Leukocytes, UA Negative Triglycerides 194(H) Cholesterol, Total 163 HDL 32(L) mg/dL LDL-Calculated 97 Chol/HDL Ratio (External Entry) 5 Non HDL Cholesterol 131 12/03/2024 Historical Provider LAB BLOOD ORDERABLES Alma l Result from Last 3 Months or Most Recently Relevant to Health Maintenance Insurance [facility] Care Teams Tumbling Machine Operator Relationship Specialty Start Date End Date Tj Corbett MD [address] [place] [address] PCP - General Family Medicine 12/02/24
--- NOTE | 2025-01-27 08:00 | ECHO_ITS ---
Patient Info Name: Jose Segal Age: 74 years : 1950 Gender: Male Ht: 63 in Wt: 165 lbs BSA: 1.85 m2 HR: 75 bpm BP: 122 / 84 mmHg Heart Rhythm: Sinus Rhythm Technical Quality: Fair Exam Date: 01/27/2025 7:43 AM Patient Status: O Admit Date: 01/27/2025 Exam Type: CA echo doppler color flow Complete two-dimensional, color flow and Doppler transthoracic echocardiogram is performed. Jelly Filter Tender: Estephania Salas Attending Provider: Mervin Boyle DO Summary 1. Complete two-dimensional, color flow and Doppler transthoracic echocardiogram is performed. 2. Left ventricular chamber dimension is normal. 3. Left ventricular systolic function is mildly globally reduced, estimated at 45-50. 4. The left ventricular diastolic function is grade I diastolic dysfunction. 5. Mid to apical anteroseptum/septum are moderately hypokinetic. 6. E/e' 15 is elevated. 7. Global longitudinal strain is abnormal at -13.5%. 8. Linear artifact in right ventricle suggestive of catheter(s), pacemaker lead(s), or ICD lead(s). 9. Linear artifact in the right atrium suggestive of catheter(s), pacemaker lead(s), or ICD lead(s). 10. There is moderate aortic valve sclerosis. 11. There is mild aortic valve stenosis with a peak velocity of 134 cm/s, mean gradient of 4 mmHg, and aortic valve area of 1.6 cm2. 12. There is mild aortic valve regurgitation. 13. There is trace tricuspid valve regurgitation. 14. No pulmonary hypertension, estimated pulmonary arterial systolic pressure is 22 mmHg. Left Ventricle E/e' 15 is elevated. Left ventricular chamber dimension is normal. Left ventricular systolic function is mildly globally reduced, estimated at 45-50. The left ventricular diastolic function is grade I diastolic dysfunction. Global longitudinal strain is abnormal at -13.5%. Mid to apical anteroseptum/septum are moderately hypokinetic. Right Ventricle Right ventricular chamber dimension is normal. Right ventricular systolic function is normal and with normal TAPSE 2.0 cm. Linear artifact in right ventricle suggestive of catheter(s), pacemaker lead(s), or ICD lead(s). Left Atria Left atrial chamber dimension is normal. Right Atria Right atrial chamber dimension is normal. Linear artifact in the right atrium suggestive of catheter(s), pacemaker lead(s), or ICD lead(s). Aortic Valve The aortic valve is trileaflet. There is moderate aortic valve sclerosis. There is mild aortic valve stenosis with a peak velocity of 134 cm/s, mean gradient of 4 mmHg, and aortic valve area of 1.6 cm2. There is mild aortic valve regurgitation. Pulmonic Valve There is no pulmonic regurgitation. Mitral Valve There is no mitral valve stenosis. There is no mitral valve regurgitation. Tricuspid Valve There is trace tricuspid valve regurgitation. No pulmonary hypertension, estimated pulmonary arterial systolic pressure is 22 mmHg. Pericardium/Pleural There is no pericardial effusion. Inferior Vena Cava Normal inferior vena cava with >50% collapse upon inspiration consistent with normal right atrial pressure, 5 mmHg. Aorta The aortic root size at the sinus of Valsalva is normal. Left Ventricular Outflow Tract Name Value Normal LVOT 2D LVOT Diameter 2.0 cm LVOT Doppler LVOT Peak Velocity 59 cm/s LVOT Peak Gradient 1 mmHg LVOT Mean Gradient 1 mmHg LVOT VTI 13 cm LVOT VTI/AV VTI Ratio 0.5 LVOT Stroke Volume 39 ml LVOT CO 2.4 l/min LVOT CI 1.3 l/min/m2 Pulmonic Valve Name Value Normal RVOT Doppler RVOT Peak Velocity 71 cm/s RVOT Peak Gradient 2 mmHg PV Doppler PV Peak Velocity 82 cm/s PV Peak Gradient 3 mmHg Mitral Valve Name Value Normal MV Diastolic Function MV E Peak Velocity 52 cm/s MV A Peak Velocity 99 cm/s MV E/A 0.5 MV Decel Time (PW) 206 ms MV Annular TDI MV E/e' (Septal) 13.3 MV E/e' (Lateral) 19.8 MV E/e' (Average) 16.5 Tricuspid Valve Name Value Normal TV Regurgitation Doppler TR Peak Velocity 206 cm/s TR Peak Gradient 13 mmHg Estimated PAP/RSVP RA Pressure 5 mmHg <=5 PA Systolic Pressure 22 mmHg <36 RV Systolic Pressure 22 mmHg <36 TV Annular TDI TV Lateral Neida s' Velocity 6.8 cm/s >=9.5 Aorta Name Value Normal Ascending Aorta Ao Root Diameter (MM) 3.4 cm Ao Root Diam Index (MM) 1.8 cm/m2 Aortic Valve Name Value Normal AV Doppler AV Peak Velocity 134 cm/s AV Peak Gradient 7 mmHg AV Mean Gradient 4 mmHg AV VTI 24 cm AV Area (Cont Eq VTI) 1.6 cm2 >=3.0 AV Area (Cont Eq Boston) 1.3 cm2 AV DI (Boston) 0.44 AV Regurgitation 2D LVOT Area 3.0 cm2 Ventricles Name Value Normal LV Dimensions 2D/MM IVS Diastolic Thickness (2D) 1.0 cm 0.6-1.0 LVID Diastole (2D) 4.6 cm 4.2-5.8 LVIW Diastolic Thickness (2D) 1.0 cm 0.6-1.0 LVID Systole (2D) 3.7 cm 2.5-4.0 LVOT Diameter 2.0 cm LV Mass (2D Cubed) 155.19 g 88.00-224.00 LV Mass Index (2D Cubed) 84 g/m2 49-115 Relative Wall Thickness (2D) 0.41 <=0.42 LV Fractional Shortening/Ejection Fraction 2D/MM LV Fractional Shortening (2D) 19 % 25-43 LV EF (2D Teichholz) 40 % LV Diastolic Volume (4C MOD) 76 ml LV EF (4C MOD) 42 % LV Diastolic Volume (2C MOD) 88 ml LV EF (2C MOD) 43 % LV Diastolic Volume (BP MOD) 87 ml 62-150 LV Diastolic Volume Index (BP MOD) 47 ml/m2 34-74 LV Systolic Volume (BP MOD) 47 ml 21-61 LV Systolic Volume Index (BP MOD) 25 ml/m2 11-31 LV EF (BP MOD) 46 % 52-72 LV Diastolic Length (4C) 7.2 cm LV Systolic Length (4C) 6.9 cm LV Stroke Volume (4C MOD) 32 ml Atria Name Value Normal LA Dimensions LA Dimension (MM) 4.0 cm 3.0-4.0 LA Volume (4C A-L) 18 ml LA Volume (BP A-L) 23 ml RA Dimensions RA Area (4C) 7.4 cm2 <=18.0 EchoPAC Name Value Normal CHERYLE LV Apical Anterior Longitudinal Strain (CHERYLE) -11.6 % LV Apical Anteroseptal Longitudinal Strain (CHERYLE) -13.8 % LV Apical Inferior Longitudinal Strain (CHERYLE) -16.8 % LV Apical Lateral Longitudinal Strain (CHERYLE) -10.2 % LV Apical Posterior Longitudinal Strain (CHERYLE) -15.2 % LV Apical Septal Longitudinal Strain (CHERYLE) -13.3 % AV Closure (CHERYLE) 394 ms LV Basal Anterior Longitudinal Strain (CHERYLE) -12.4 % LV Basal Anteroseptal Longitudinal Strain (CHERYLE) -10.8 % LV Basal Inferior Longitudinal Strain (CHERYLE) -14.1 % LV Basal Anterolateral Longitudinal Strain (CHERYLE) -9.7 % LV Basal Inferolateral Longitudinal Strain (CHERYLE) -14.5 % LV Basal Inferoseptal Longitudinal Strain (CHERYLE) -17.5 % LV Global Longitudinal Strain (2C CHERYLE) -14.2 % LV Global Longitudinal Strain (4C CHERYLE) -12.3 % LV Global Longitudinal Strain (APLAX CHERYLE) -14.0 % LV Global Longitudinal Strain (CHERYLE) -13.5 % LV Mid Anterior Longitudinal Strain (CHERYLE) -12.0 % LV Mid Anteroseptal Longitudinal Strain (CHERYLE) -14.1 % LV Mid Inferior Longitudinal Strain (CHERYLE) -17.2 % LV Mid Anterolateral Longitudinal Strain (CHERYLE) -11.9 % LV Mid Inferolateral Longitudinal Strain (CHERYLE) -15.3 % LV Mid Inferoseptal Longitudinal Strain (CHERYLE) -17.0 % Report Signatures
== END 2025-01-27 07:14 | disposition home or self-care (01) ==
PROVIDERS: PCP Family Medicine; Visit Provider Internal Medicine Cardiovascular Disease
DX: I25.5 Ischemic cardiomyopathy (principal)
CPT/HCPCS: 93306